=== PATIENT | male | born 1950 | race Caucasian/White ===

== ENCOUNTER 2020-10-07 09:33 | Inpatient (IN) | payer MEDICARE, MEDICAID, SELFPAY ==
[2020-10-07] VITALS (20 sets, daily range): BP systolic 117–148; BP diastolic 58–89; PULSE 64–73; RESP 14–20; TEMP 35.8–36.6; O2SAT 91–98; BMI 48.1; BMI 48.4; BMI 46.5
--- NOTE | 2020-10-07 09:41 | CT_ITS ---
STUDY: CT HEAD STROKE PROTOCOL W/O CONTRAST INJECTION REASON FOR EXAM: Male, 70 years old. Neuro deficit, acute, stroke suspected RADIATION DOSAGE (If Supplied By Facility): CTDIvol = ( 44.99 ) mGy, DLP = ( 863.6 ) mGycm TECHNIQUE: Transaxial CT imaging of the brain was performed without administration of intravenous contrast material. Individualized dose optimization techniques were used for this CT. COMPARISON: No relevant priors. FINDINGS: Normal soft tissue structures. Normal calvarium. There is moderate cerebral atrophy with widening of the extra-axial spaces and ventricular dilatation. There are areas of decreased attenuation within the white matter tracts of the supratentorial brain, consistent with microvascular disease changes. Normal basal ganglia and thalami. Normal brainstem. Normal cerebellum. There is no intracranial hemorrhage. There are no findings of an acute ischemic infarction. Atherosclerotic calcification of the cavernous portions of the internal carotid arteries bilaterally. Normal visualized paranasal sinuses. CT/STROKE Brain/Head without Cont IMPRESSION: Chronic involutional changes of the brain. N.B. : The above information has been verbally conveyed by Lester Castillo MD to Roland Valladares on 10/07/2020 10:15:54 (ET). Electronically Signed: Lester Castillo MD at 10:17 EDT , Service support ,
--- NOTE | 2020-10-07 09:41 | EKG12_ITS ---
Test Reason : STROKE Blood Pressure : / mmHG Vent. Rate : 067 BPM Atrial Rate : 067 BPM P-R Int : 176 ms QRS Dur : 086 ms QT Int : 408 ms P-R-T Axes : 090 -26 -43 degrees QTc Int : 431 ms Normal sinus rhythm T wave abnormality, consider anterolateral ischemia Abnormal ECG Confirmed by ILANA BEE, MAHAMED ([id number]), editor index ELAINA PARIKH ([id number]) on 10/11/2020 8:13:21 AM Referred By: [place] Confirmed By:MAHAMED PRECIADO MD
--- NOTE | 2020-10-07 09:41 | RAD_ITS ---
STUDY: X-RAY CHEST REASON FOR EXAM: Male, 70 years old. Neuro deficit, acute, stroke suspected TECHNIQUE: Single AP portable view of the chest. COMPARISON: None. FINDINGS: EKG electrodes are seen. There is elevation of the right hemidiaphragm. Mild increased markings at the left lung base suggestive of linear atelectasis and/or early infiltrate. There is blunting of both costophrenic angles. Normal size heart. Normal mediastinum and arabella. Normal visualized pulmonary arteries. There is atherosclerotic calcification of the aortic arch with tortuosity. Normal visualized thoracic spine. Normal visualized ribs, clavicles, and shoulders. There is no demonstrated abnormality of the visualized soft tissue structures of the upper abdomen. RAD/Chest 1 View IMPRESSION: Elevation of the right hemidiaphragm. Mild degree of increased markings at the left lung base suggestive of atelectasis and/or early infiltrate. Blunting of both costophrenic angles. Electronically Signed: Lester Castillo MD at 10:24 EDT , Service support ,
--- NOTE | 2020-10-07 09:42 | EDS_ITS ---
HPI History of Present Illness Chief Complaint: Neuro S/Sx Informant: patient Limited: language barrier Onset/Context/Timing Onset: - (Unknown at the present time) Context: - (Unknown) Timing: Continuous (Presumed) Onset: Unknown Current Severity: Unable to determine Maximum Severity: Unable to determine Worsened by: Unknown Relieved by: Unknown Associated Symptoms Associated Symptoms: Positive for Headache Narrative Narrative: Patient is an elderly male who apparently had surgery last week at outside facility. Unknown onset. He does acknowledge head discomfort. He attempts to speak. He does not speak K[place] fluently. Awaiting family to arrive since he is not able to communicate well. Per family they do not know when this started. He is unable to tell me when. Prior similar symptoms: No Recent Illness/Hospitalization: Yes (Surgery at outside facility) [facility] Medical History (Updated 10/07/20 @ 14:[address] Roland Valladares MD) Diabetes Hyperlipidemia Hypertension Schizophrenia unable to obtain Home Medications amlodipine 5 mg PO DAILY 10/07/20 [History Last Taken Unknown] aspirin 81 mg PO DAILY 10/07/20 [History Last Taken Unknown] benztropine 1 mg PO DAILY 10/07/20 [History Last Taken Unknown] divalproex 1,000 mg PO QHS 10/07/20 [History Last Taken Unknown] divalproex 500 mg PO BREAKFAST 10/07/20 [History Last Taken Unknown] doxepin 100 mg PO QHS 10/07/20 [History Last Taken Unknown] glimepiride 4 mg PO BID 10/07/20 [History Last Taken Unknown] levothyroxine 88 mcg PO QHS 10/07/20 [History Last Taken Unknown] lorazepam 1 mg PO BID 10/07/20 [History Last Taken Unknown] memantine 5 mg PO BID 10/07/20 [History Last Taken Unknown] metformin 1,000 mg PO BID 10/07/20 [History Last Taken Unknown] perphenazine 32 mg PO QHS 10/07/20 [History Last Taken Unknown] tamsulosin 0.4 mg PO DAILY 10/07/20 [History Last Taken Unknown] trazodone 300 mg PO QHS 10/07/20 [History Last Taken Unknown] ziprasidone HCl 80 mg PO BID 10/07/20 [History Last Taken Unknown] Allergy/AdvReac Type Severity Reaction Status Date / Time No Known Allergies Allergy Verified 10/07/20 12:39 unable to obtain Surgical History (Updated 10/07/20 @ 12:34 by Dilcia Herbert) History of cholecystectomy unable to obtain Social History (Updated 10/07/20 @ 09:[address] Roland Valladares MD) Smoking Status: Never smoker additional social history: Unable to obtain ROS [facility] ED Neurologic Neurologic: Reports weakness; Denies headache(s) EXAM Physical Exam Const Vital Signs: 10/07/20 09:35 10/07/20 09:54 10/07/20 09:59 Temperature 97.8 F Temperature Source Temporal Pulse Rate 67 65 64 Respiratory Rate 18 15 15 Blood Pressure 146/85 H 147/73 H 144/86 H Blood Pressure Mean 105 97 105 Pulse Ox 93 97 96 Oxygen Delivery Method Room Air Nasal Cannula Nasal Cannula Oxygen Flow Rate (L/min) 2 2 10/07/20 10:11 10/07/20 10:30 10/07/20 11:00 Temperature Temperature Source Pulse Rate 64 66 68 Respiratory Rate 16 18 19 H Blood Pressure 144/86 H 148/87 H 129/84 H Blood Pressure Mean 105 107 99 Pulse Ox 98 95 95 Oxygen Delivery Method Room Air Room Air Room Air Oxygen Flow Rate (L/min) 10/07/20 11:30 10/07/20 12:11 10/07/20 12:30 Temperature Temperature Source Pulse Rate 67 66 67 Respiratory Rate 17 19 H 16 Blood Pressure 123/66 H 132/89 H 126/58 H Blood Pressure Mean 85 103 80 Pulse Ox 95 95 95 Oxygen Delivery Method Room Air Room Air Room Air Oxygen Flow Rate (L/min) 10/07/20 13:00 10/07/20 13:30 Temperature Temperature Source Pulse Rate 67 66 Respiratory Rate 19 H 20 H Blood Pressure 142/76 H 120/69 Blood Pressure Mean 98 86 Pulse Ox 92 91 Oxygen Delivery Method Nasal Cannula Room Air Oxygen Flow Rate (L/min) 2 Positive well nourished, well developed and obese General Appearance ED: well developed and NAD Nutritional Appearance: obese HEENT Reports TM's clear and dry mucous membranes atraumatic Tympanic Membrane ED: Yes TM's clear Mouth ED: Yes dry mucous membranes Mouth: dry mucous membranes Eyes PERRL and EOMs intact bilaterally Eyes Narrative: There is no nystagmus. General Eye ED: Negative for pale conjunctiva or scleral icterus Neck no lymphadenopathy, supple and no JVD Neck Narrative: There is no carotid bruit right or left Chest Wall inspection of chest normal Resp normal respiratory effort and clear to auscultation bilaterally Cardio no murmurs Rate: regular rate Rhythm: regular rhythm Heart Sounds: S1 normal and S2 normal GI normal to inspection, nondistended, normoactive bowel sounds, soft to palpation and non-tender Back/Spine no CVA tenderness Extremity normal to inspection General Extremety ED: Yes edema General Extremity: edema Neuro No oriented x3, No CN's II-XII intact bilaterally and No no sensory deficits noted Rigoberto Coma Scale: document GCS findings Spontaneous Obeys Commands Confused 14 Sensorium / Orientation: Negative for alert Speech: Negative for speech normal Motor Exam: Negative for strength 5/5 throughout Psych mental status grossly normal Skin Lesions: no lesions Rashes: no rashes STROKE Vital Signs/Narrative: Vital Signs Pulse Resp BP Pulse Ox 10/07/20 13:30 66 20 H 120/69 91 10/07/20 13:00 67 19 H 142/76 H 92 10/07/20 12:30 67 16 126/58 H 95 10/07/20 12:11 66 19 H 132/89 H 95 10/07/20 11:30 67 17 123/66 H 95 10/07/20 11:00 68 19 H 129/84 H 95 10/07/20 10:30 66 18 148/87 H 95 NIHSS Initial: 1a Level of Consciousness: 1 1b LOC Questions (Score 2 if aphasic/stupor): 2 1c LOC Commands (Only score 1st attempt): 0 2 Best Gaze (If aphasic, use reflexive mvmts.): 0 4 Facial Palsy: 1 5 Motor Arm Right (UN = amputation/fusion): 0 5 Motor Arm Left: 2 6 Motor Leg Right: 0 6 Motor Leg Left: 1 7 Limb ataxia (Only + if out of proportion): 0 8 Sensory (Aphasia/stupor=0 or 1, coma=2): 1 9 Best Language: 0 10 Dysarthria (mute, coma=2, intubated=UN): 1 Total Score: 9 MDM MDM MDM Narrative Medical decision making narrative: Patient's physical exam is consistent with right hemispheric stroke. Stroke order set was initiated. Unable to complete NIH scale because patient unable to comprehend. Uncertain whether this is bec ause of language barrier or receptive aphasia. is present. She states she has history of schizophrenia. She also states he was having hallucinations yesterday. He was seen children. He is not acting his normal self and is not as alert as normal. Patient has abnormal respiratory pattern. Since he is somnolent will obtain VBG to assess pH and specifically CO2. His oxygenation is 97% on nasal cannula. I was informed by nurse that he is unable to ambulate. Since he has weakness on the left side I this is not a surprising. Lab Data Attestation: I reviewed the patient's lab results. Lab results narrative: Since there is bilirubin and urobilinogen in his urine a liver panel was obtained. Suspect this to be due to concentration since the color was noted to be yellow and not tao. Hospitalist been paged for admission for stroke. Labs: Laboratory Results - last 24 hr 10/07/20 10/07/20 10/07/20 09:48 09:55 09:55 WBC 7.3 RBC 4.38 L Hgb 13.6 Hct 41.8 MCV 95.4 H MCH 31.1 MCHC 32.5 RDW Std Deviation 49.3 H RDW Coeff of Areli 13.9 Plt Count 190 MPV 9.9 Immature Gran % (Auto) 0.400 Neut % (Auto) 46.3 L Lymph % (Auto) 36.2 [place] % (Auto) 9.4 Eos % (Auto) 7.4 H Baso % (Auto) 0.3 Absolute Neuts (auto) 3.4 Absolute Lymphs (auto) 2.63 Nucleated RBC % 0 PT 13.2 INR 1.1 APTT 30.1 Sodium Potassium Chloride Carbon Dioxide Anion Gap BUN Creatinine Estim Creat Clear Calc Est GFR (MDRD) Af Amer Est GFR (MDRD) Non-Af BUN/Creatinine Ratio Glucose Calcium Troponin I Urine Color Urine Clarity Urine pH Ur Specific Brady Urine Protein Urine Glucose (UA) Urine Ketones Urine Occult Blood Urine Nitrite Urine Bilirubin Urine Urobilinogen Ur Leukocyte Esterase Urine RBC Urine WBC Ur Squamous Epith Cells Urine Bacteria Urine Mucus POC Glucose 167 H 10/07/20 10/07/20 09:55 13:40 WBC RBC Hgb Hct MCV MCH MCHC RDW Std Deviation RDW Coeff of Areli Plt Count MPV Immature Gran % (Auto) Neut % (Auto) Lymph % (Auto) [place] % (Auto) Eos % (Auto) Baso % (Auto) Absolute Neuts (auto) Absolute Lymphs (auto) Nucleated RBC % PT INR APTT Sodium 138 Potassium 4.1 Chloride 100 Carbon Dioxide 30.0 Anion Gap 8 BUN 14 Creatinine 1.08 Estim Creat Clear Calc 64.55 Est GFR (MDRD) Af Amer 87 Est GFR (MDRD) Non-Af 72 BUN/Creatinine Ratio 13.0 Glucose 166 H Calcium 8.7 Troponin I < 0.015 Urine Color Yellow Urine Clarity Clear Urine pH 6.0 Ur Specific Brady 1.020 Urine Protein Negative Urine Glucose (UA) Normal Urine Ketones 15 H Urine Occult Blood Negative Urine Nitrite Negative Urine Bilirubin 1 H Urine Urobilinogen 1 H Ur Leukocyte Esterase Negative Urine RBC 0 SEEN Urine WBC 0 SEEN Ur Squamous Epith Cells 0-5 SEEN Urine Bacteria RARE Urine Mucus 1+ POC Glucose ABG Data ABG results: ABG 10/07/20 10:56 Specimen Type MABEL VBG pH 7.37 VBG pO2 38 VBG HCO3 28 H VBG Total CO2 30 VBG O2 Sat (Calc) 70 VBG Base Excess 3 POC Mix VBG pCO2 Pt Tmp 49.2 Radiography Diagnostic Testing: Radiology Impression Brain CT 10/07/20 09:41 IMPRESSION: Chronic involutional changes of the brain. N.B. : The above information has been verbally conveyed by Lester Castillo MD to [facility] on 10/07/2020 10:15:54 (ET). Electronically Signed: Lester Castillo MD at 10:17 EDT , Service support , ADDENDUM: 10/07/20 1024 IMPRESSION: Chronic involutional changes of the brain. N.B. : The above information has been verbally conveyed by Lester Castillo MD to Rolandalbaro Valladares on 10/07/2020 10:15:54 (ET). Electronically Signed: Lester Castillo MD at 10:17 EDT , Service support , Chest X-Ray 10/07/20 09:41 IMPRESSION: Elevation of the right hemidiaphragm. Mild degree of increased markings at the left lung base suggestive of atelectasis and/or early infiltrate. Blunting of both costophrenic angles. Electronically Signed: Lester Castillo MD at 10:24 EDT , Service support , I was contacted by radiologist at [phone] and informed there is no acute findings. There is evidence of atrophy and small vessel disease. Single view portable chest x-ray Normal cardiac size and silhouette. Mediastinum is unremarkable. Lung parenchyma is unremarkable. Inspiratory volume is limited. The right hemidiaphragm is elevated. Osseous structures appear normal. EKG Initial EKG: Attestation: I personally reviewed and interpreted this EKG as follows: Interpretation: Sinus Rhythm (Normal sinus rhythm with a ventricular rate of 67. UT interval is 176 ms. QS duration 86 ms. QT duration 408 ms. [place] is normal. There is minimally symmetrically inverted T waves in the anterolateral leads. Will need to obtain old for comparison.) Stroke Documentation Questions Reviewed Inclusion/Exclusion criteria: No Was Patient considered for Endovascular Intervention?: No IV Alteplase (t-PA) Administered: No No contraindications for IV Alteplase (t-PA) administration.: No Alteplase (t-PA) risks, benefits, alternative discussed: No Discharge Plan Triage Chief Complaint: Neuro S/Sx ED Provider: Roland Valladares Dx/Rx/DC Orders Clinical Impression: Acute CVA (cerebrovascular accident), Acute alteration in mental status Prescriptions: No Action ziprasidone HCl 80 mg capsule 80 mg PO BID RF: 0 doxepin 50 mg capsule 100 mg PO QHS RF: 0 amlodipine 5 mg tablet 5 mg PO DAILY RF: 0 divalproex 500 mg tablet,delayed release (DR/EC) 500 mg PO BREAKFAST RF: 0 divalproex 500 mg tablet,delayed release (DR/EC) 1,000 mg PO QHS RF: 0 levothyroxine 88 mcg tablet 88 mcg PO QHS RF: 0 tamsulosin 0.4 mg capsule 0.4 mg PO DAILY RF: 0 metformin 1,000 mg tablet 1,000 mg PO BID RF: 0 glimepiride 4 mg tablet 4 mg PO BID RF: 0 benztropine 1 mg tablet 1 mg PO DAILY RF: 0 trazodone 300 mg tablet 300 mg PO QHS RF: 0 aspirin 81 mg Tablet 81 mg PO DAILY RF: 0 lorazepam 1 mg tablet 1 mg PO BID RF: 0 perphenazine 8 mg tablet 32 mg PO QHS RF: 0 memantine 5 mg tablet 5 mg PO BID RF: 0 Primary Care Provider: Zac Sawyer Referrals: Zac Sawyer DO [Primary Care Provider] - Disposition Disposition: Acute Care Hospital [facility]
--- NOTE | 2020-10-07 09:45 | NURSING ---
NO OLD EKGS
[2020-10-07 09:56] LABS: Bedside Glucose 167 mg/dL (70-110)
[2020-10-07 10:10] LABS: Absolute Lymphocyte Count 2.63 X10^3/uL (0.83-4.51); Absolute Neutrophil Count 3.4 X10^3/uL (2.0-7.7); Basophil# 0.02 X10^3/uL; Basophil% 0.3 % (0-1); Eosinophil# 0.54 X10^3/uL; Eosinophils% 7.4 % (0-5); Hematocrit 41.8 % (40-54); Hemoglobin 13.6 g/dL (13.0-16.5); Lymphocyte # 2.63 X10^3/ul (0.83-4.51); Lymphocyte % 36.2 % (19-41); Mean Corp Hgb Conc 32.5 g/dL (32-36); Mean Corpuscular Hgb 31.1 pg (27.0-32.0); Mean Corpuscular Volume 95.4 fL (80-94); Mean Platelet Vol. 9.9 fl (6.2-12.0); Monocyte# 0.68 X10^3/uL; Monocyte% 9.4 % (0-10); NRBC Flagged by Analyzer 0 % (0-5); Neutrophil # 3.36 X10^3/uL (2.7-7.7); Neutrophil % 46.3 % (47-70); Platelet Count 190 K/mm3 (150-450); RBC Distribution Width CV 13.9 % (11.6-14.6); RBC Distribution Width SD 49.3 fl (35.1-43.9); Red Blood Count 4.38 M/mm3 (4.6-6.2); White Blood Count 7.3 K/mm3 (4.4-11.0)
[2020-10-07 10:21] LABS: International Normalized Ratio 1.1; Partial Thromboplast Time 30.1 Seconds (24.1-36.2); Prothrombin Time (Protime)PT. 13.2 SECONDS (11.7-14.9)
[2020-10-07 10:33] LABS: Anion Gap 8 (5-15); BUN 14 mg/dL (7-18); Calcium,Total 8.7 mg/dL (8.5-10.1); Chloride 100 mmol/L (98-107); Creatinine, Serum 1.08 mg/dL (0.70-1.30); EST Glomerular Filtration Rate 72 mL/min (>60); Est Glom Filt Rate - Afr Amer 87 mL/min (>60); Estimated Creatinine Clearance 64.55 ml/min; Glucose 166 mg/dL (74-106); Potassium 4.1 mmol/L (3.5-5.1); Sodium Level 138 mmol/L (136-145)
[2020-10-07 11:00] LABS: Blood Gas Specimen Type VEN; VBG BASE EXCESS 3 mmol/L (-1.0-3.5); VBG Bicarbonate 28 mmol/L (22-26); VBG PO2 38 mmHg (25-40); VBG SO2 70 % (50-70); VBG TCO2 30 mmol/L (23-33); VBG pCO2 49.2 mmHg (41-51); VBG pH 7.37 (7.32-7.42)
[2020-10-07 13:43] LABS: Red Blood Cells-Urine 0 SEEN /hpf (0-5); White Blood Cells 0 SEEN /hpf (0-5)
[2020-10-07 13:44] LABS: Color, Urine Yellow (Yellow); Glucose, Dipstick Normal (Normal); Ketone-Dipstick 15 mg/dl (Negative); Leukocyte Esterase-Dipstick Negative /ul (Negative); Nitrite-Dipstick Negative (Negative); Occult Blood-Urine Negative /ul (Negative); Protein-Dipstick Negative (Negative); Urine Clarity Clear (Clear); Urine Urobilinogen 1 mg/dl (Normal)
[2020-10-07 13:47] LABS: Urine Bilirubin Dipstick 1 mg/dL (Negative)
[2020-10-07 13:49] LABS: Bacteria RARE /hpf (None Seen); Mucous, Urine 1+ /hpf (<or=2+); Squamous Epithelial Cells - UA 0-5 SEEN /hpf (0-5)
--- NOTE | 2020-10-07 14:16 | ED.RN ---
PER MD NO LONGER NEED TO DO NIHSS.
--- NOTE | 2020-10-07 14:42 | NURSING ---
LISA PARKER CVA, ALTERED MENTAL STATUS
--- NOTE | 2020-10-07 15:50 | PCM.HP.STD ---
[facility] - General General Date of Admission: 10/07/20 HPI Narrative BRIONNA VALLECILLO, is a 70 M who presents with left-sided weakness. Symptoms began several days ago. Patient dropping things with both hands but having left leg weakness according to his . Patient is confused but also does not speak [place] well so history is obtained through the emergency room physician as well as the patient's , who is fluent in [place]. No history of prior stroke. Patient does have a history of hallucinations which is not new. She states that the patient has been told he is either having seizures or has dementia by different neurologist. [facility] Medical History Arthritis Asthma Chest pain Congestive heart failure (CHF) Diabetes GERD (gastroesophageal reflux disease) Hyperlipidemia Hypertension Kidney stones Schizophrenia Home Medications amlodipine 5 mg PO DAILY 10/07/20 [History Last Taken 10/07/20] aspirin 81 mg PO QHS 10/07/20 [History Last Taken 10/06/20] benztropine 1 mg PO BID 10/07/20 [History Last Taken 10/07/20] divalproex 1,000 mg PO QHS 10/07/20 [History Last Taken 10/06/20] divalproex 500 mg PO BREAKFAST 10/07/20 [History Last Taken 10/07/20] doxepin 100 mg PO QHS 10/07/20 [History Last Taken 10/06/20] glimepiride 4 mg PO BID 10/07/20 [History Last Taken 10/07/20] levothyroxine 88 mcg PO QHS 10/07/20 [History Last Taken 10/06/20] lorazepam 1 mg PO BID 10/07/20 [History Last Taken 10/07/20] memantine 5 mg PO BID 10/07/20 [History Last Taken 10/07/20] metformin 1,000 mg PO BID 10/07/20 [History Last Taken 10/07/20] perphenazine 32 mg PO QHS 10/07/20 [History Last Taken 10/06/20] tamsulosin 0.4 mg PO DAILY 10/07/20 [History Last Taken 10/06/20] trazodone 300 mg PO QHS 10/07/20 [History Last Taken 10/06/20] ziprasidone HCl 80 mg PO BID 10/07/20 [History Last Taken 10/07/20] Allergy/AdvReac Type Severity Reaction Status Date / Time No Known Allergies Allergy Verified 10/07/20 12:39 Surgical History History of cholecystectomy Social History Smoking Status: Never smoker additional social history: Unable to obtain ROS ROS Narrative Has had blurred vision since his cataract surgery. No chest pain no abdominal pain. All review of systems were negative except as mentioned above in the history of present illness and the other review of systems. Vital Signs Vital Signs Vital Signs: 10/07/20 09:35 10/07/20 09:54 10/07/20 09:59 Temperature 36.6 C Temperature Source Temporal Pulse Rate 67 65 64 Respiratory Rate 18 15 15 Blood Pressure 146/85 H 147/73 H 144/86 H Blood Pressure Mean 105 97 105 Blood Pressure Source Blood Pressure Position Blood Pressure Location Pulse Ox 93 97 96 Oxygen Delivery Method Room Air Nasal Cannula Nasal Cannula Oxygen Flow Rate (L/min) 2 2 10/07/20 10:11 10/07/20 10:30 10/07/20 11:00 Temperature Temperature Source Pulse Rate 64 66 68 Respiratory Rate 16 18 19 H Blood Pressure 144/86 H 148/87 H 129/84 H Blood Pressure Mean 105 107 99 Blood Pressure Source Blood Pressure Position Blood Pressure Location Pulse Ox 98 95 95 Oxygen Delivery Method Room Air Room Air Room Air Oxygen Flow Rate (L/min) 10/07/20 11:30 10/07/20 12:11 10/07/20 12:30 Temperature Temperature Source Pulse Rate 67 66 67 Respiratory Rate 17 19 H 16 Blood Pressure 123/66 H 132/89 H 126/58 H Blood Pressure Mean 85 103 80 Blood Pressure Source Blood Pressure Position Blood Pressure Location Pulse Ox 95 95 95 Oxygen Delivery Method Room Air Room Air Room Air Oxygen Flow Rate (L/min) 10/07/20 13:00 10/07/20 13:30 10/07/20 14:25 Temperature Temperature Source Pulse Rate 67 66 73 Respiratory Rate 19 H 20 H 14 Blood Pressure 142/76 H 120/69 117/74 Blood Pressure Mean 98 86 88 Blood Pressure Source Blood Pressure Position Blood Pressure Location Pulse Ox 92 91 97 Oxygen Delivery Method Nasal Cannula Room Air Room Air Oxygen Flow Rate (L/min) 2 10/07/20 15:11 10/07/20 15:28 Temperature 36.6 C 36.6 C Temperature Source Temporal Oral Pulse Rate 73 65 Respiratory Rate 14 16 Blood Pressure 117/74 122/76 H Blood Pressure Mean 88 91 Blood Pressure Source Monitor Blood Pressure Position Semi-Fowlers Blood Pressure Location Right Arm Pulse Ox 97 94 Oxygen Delivery Method Nasal Cannula Room Air Oxygen Flow Rate (L/min) 2 Weight Weight: 142.882 kg Body Mass Index (BMI) 46.5 Physical Exam Const alert Constitutional Narrative: Follows commands when they are translated. General Appearance: cooperative HEENT normocephalic and moist oral mucous membranes HEENT Narrative: No left facial weakness. Eyes PERRL and EOMs intact bilaterally Neck no lymphadenopathy Resp normal respiratory effort, no retractions, no use of accessory muscles and clear to auscultation bilaterally Cardio regular rate, regular rhythm, S1 normal heart sound and S2 normal heart sound GI normal to inspection, nondistended, normoactive bowel sounds, non-tender and non-distended Skin no rashes or lesions noted Neuro Neuro Narrative: Muscle strength 5 out of 5 in the right upper and right lower extremity. 4-5 in the left upper and left lower extremity. Sensorium / Orientation: awake and alert Psych affect normal Results Lab / Micro Data Result Diagrams: 10/07/20 09:55 10/07/20 09:55 Labs: Laboratory Results - last 24 hr 10/07/20 10/07/20 10/07/20 09:48 09:55 09:55 WBC 7.3 RBC 4.38 L Hgb 13.6 Hct 41.8 MCV 95.4 H MCH 31.1 MCHC 32.5 RDW Std Deviation 49.3 H RDW Coeff of Areli 13.9 Plt Count 190 MPV 9.9 Immature Gran % (Auto) 0.400 Neut % (Auto) 46.3 L Lymph % (Auto) 36.2 [place] % (Auto) 9.4 Eos % (Auto) 7.4 H Baso % (Auto) 0.3 Absolute Neuts (auto) 3.4 Absolute Lymphs (auto) 2.63 Nucleated RBC % 0 PT 13.2 INR 1.1 APTT 30.1 Sodium Potassium Chloride Carbon Dioxide Anion Gap BUN Creatinine Estim Creat Clear Calc Est GFR (MDRD) Af Amer Est GFR (MDRD) Non-Af BUN/Creatinine Ratio Glucose Calcium Troponin I Urine Color Urine Clarity Urine pH Ur Specific [place] Urine Protein Urine Glucose (UA) Urine Ketones Urine Occult Blood Urine Nitrite Urine Bilirubin Urine Urobilinogen Ur Leukocyte Esterase Urine RBC Urine WBC Ur Squamous Epith Cells Urine Bacteria Urine Mucus POC Glucose 167 H 10/07/20 10/07/20 09:55 13:40 WBC RBC Hgb Hct MCV MCH MCHC RDW Std Deviation RDW Coeff of Areli Plt Count MPV Immature Gran % (Auto) Neut % (Auto) Lymph % (Auto) [place] % (Auto) Eos % (Auto) Baso % (Auto) Absolute Neuts (auto) Absolute Lymphs (auto) Nucleated RBC % PT INR APTT Sodium 138 Potassium 4.1 Chloride 100 Carbon Dioxide 30.0 Anion Gap 8 BUN 14 Creatinine 1.08 Estim Creat Clear Calc 64.55 Est GFR (MDRD) Af Amer 87 Est GFR (MDRD) Non-Af 72 BUN/Creatinine Ratio 13.0 Glucose 166 H Calcium 8.7 Troponin I < 0.015 Urine Color Yellow Urine Clarity Clear Urine pH 6.0 Ur Specific [place] 1.020 Urine Protein Negative Urine Glucose (UA) Normal Urine Ketones 15 H Urine Occult Blood Negative Urine Nitrite Negative Urine Bilirubin 1 H Urine Urobilinogen 1 H Ur Leukocyte Esterase Negative Urine RBC 0 SEEN Urine WBC 0 SEEN Ur Squamous Epith Cells 0-5 SEEN Urine Bacteria RARE Urine Mucus 1+ POC Glucose ABG Data ABG results: ABG 10/07/20 10:56 Specimen Type MABEL VBG pH 7.37 VBG pO2 38 VBG HCO3 28 H VBG Total CO2 30 VBG O2 Sat (Calc) 70 VBG Base Excess 3 POC Mix VBG pCO2 Pt Tmp 49.[address] 10/07/20 09:41 IMPRESSION: Chronic involutional changes of the brain. N.B. : The above information has been verbally conveyed by Lester Castillo MD to Roland Valladares on 10/07/2020 10:15:54 (ET). Electronically Signed: Lester Castillo MD at 10:17 EDT , Service support , ADDENDUM: 10/07/20 1024 IMPRESSION: Chronic involutional changes of the brain. N.B. : The above information has been verbally conveyed by Lester Castillo MD to Roland Valladares on 10/07/2020 10:15:54 (ET). Electronically Signed: Lester Castillo MD at 10:17 EDT , Service support , Chest X-Ray 10/07/20 09:41 IMPRESSION: Elevation of the right hemidiaphragm. Mild degree of increased markings at the left lung base suggestive of atelectasis and/or early infiltrate. Blunting of both costophrenic angles. Electronically Signed: Lester Castillo MD at 10:24 EDT , Service support , Assessment & Plan Assessment/Plan (1) Acute CVA (cerebrovascular accident): PLAN: 1. Suspected acute versus subacute stroke Patient with resolving new onset of left-sided weakness which she did not have previously. Initial head CT showed no acute evidence of stroke Plan is for an MRI of the brain, MRA of the head and neck plus 2D echocardiogram. After that information has been gathered, then SOC teleneurology will need to be consulted for further recommendations. Patient on aspirin and will continue for now. Will start the patient on clopidogrel as well as a high intensity statin. PT, OT and speech therapy evaluate and treat. 2. Suspected dementia Patient's states that he hallucinates at times get confused easily. Patient already established with neurology Continue with memantine 3. Diabetes mellitus type 2 Continue with Metformin, glimepiride Add sliding scale insulin 4. Debility PT OT evaluate and treat already states that she would not be able to effectively handle the patient at home as it is just she and him at the house. Patient may need to go to a senior care facility if necessary upon discharge. 5. VTE prophylaxis Do not hospitalization is expected to exceed greater than 2 midnights, patient will be placed on enoxaparin 6. Advanced care planning: Discussed with the patient's . They state that patient is already DNR Comfort Care arrest no intubation. Charges/Coding Visit Charges Inpatient E&M: 71954 Init Hosp L3
--- NOTE | 2020-10-07 15:51 | ECHOCS_ITS ---
Reason For Study: TIA/CVA Procedure This was a 2D Doppler, Color Flow transthoracic echocardiogram. The study was technically difficult. Contrast injection was performed. Bubble study performed. Exam performed portable in patient room. Left Ventricle Based upon the 2D echocardiographic and contrast enhanced images obtained there appears to be grossly normal left ventricular size, wall motion, and systolic function. The estimated ejection fraction is 65 %. Diastolic function is indeterminate. Right Ventricle Normal RV size. Normal systolic function. Atria The left atrium is mildly enlarged. Normal right atrium. No doppler evidence for ASD. Bubble contrast study negative for right to left interatrial shunt. Mitral Valve There is no mitral annular calcification. Mitral valve not well visualized. Tricuspid Valve The tricuspid valve is not well visualized. Aortic Valve The aortic valve is not well visualized. Mild focal aortic valve calcification. Pulmonic Valve The pulmonic valve is not well visualized. Great Vessels The aortic root is not well visualized. Pericardium/Pleural No pericardial effusion. Medication Diluted definity 3ml given slow IV push to enhance endocardial definition. Performed a rapid injection of agitated mix of 9 cc saline and 1cc air to assess for atrial septal defect. MMode/2D Measurements & Calculations LVIDd: 4.3 cm IVSd: 1.2 cm LA dimension: 4.2 cm LVIDs: 2.4 cm LVPWd: 1.2 cm FS: 44.4 % LAV(MOD-bp): 61.7 ml LA A4 area: 22.1 cm2 LAV(MOD-bp) Indexed: 24.6 ml/m2 LAV(MOD-sp2): 51.1 ml LAV(MOD-sp4): 67.5 ml Time Measurements MV dec time: 0.28 sec Doppler Measurements & Calculations MV E max sulaiman: 60.0 cm/sec Lat Peak E' Sulaiman: 9.2 cm/sec Med Peak E' Sulaiman: 8.0 cm/sec MV A max sulaiman: 80.8 cm/sec E/E' lat: 6.5 E/E' med: 7.5 MV E/A: 0.74 MV V2 max: 88.6 cm/sec MV P1/2t max sulaiman: 66.6 cm/sec Ao V2 max: 138.0 cm/sec MV max P.1 mmHg MV P1/2t: 116.2 msec Ao max P.6 mmHg MV V2 mean: 50.0 cm/sec MV dec slope: 168.1 cm/sec2 MV mean P.2 mmHg MV V2 VTI: 21.0 cm MVA(P1/2t): 1.9 cm2 LV V1 max: 115.5 cm/sec PA V2 max: 105.0 cm/sec LV V1 max P.3 mmHg ECHO/Echo Complete W/ Contrast Interpretation Summary The study was technically difficult. Contrast injection was performed. Based upon the 2D echocardiographic and contrast enhanced images obtained there appears to be grossly normal left ventricular size, wall motion, and systolic function. The estimated ejection fraction is 65 %. The left atrium is mildly enlarged. Mild focal aortic valve calcification. Diastolic function is indeterminate. Bubble contrast study negative for right to left interatrial shunt. Ordering Physician: Klever Padron Referring Physician: Zac Sawyer Performed By: Ambrose Saleh RCS
--- NOTE | 2020-10-07 15:51 | MRI_ITS ---
HISTORY: left sided weakness EXAMINATION: MRA Head W/O Contrast TECHNIQUE: Routine [place] of [place]/brain 3D time of flight MR angiogram protocol was performed without gadolinium. 3D reconstructions were reviewed. IV Contrast dosage and agent: COMPARISON: None FINDINGS: --Anterior circulation: ICAs: No significant stenosis at the intracranial/visualized segments. ACAs: No significant stenosis at the visualized segments. Hypoplastic left A1 segment. ACOM: Present. MCAs: No significant stenosis at the visualized segments. --Posterior circulation: PCOMs: Not present. telehealth director: No significant stenosis at the visualized segments. Left LOADER HELPER origin, diminutive vessel best seen on the slab images. BASILAR ARTERY: No significant stenosis. VERTEBRAL ARTERIES: No significant stenosis at the intradural/visualized segments. No evidence of intracranial aneurysm or vascular malformation. MRI/MRA Head ONLY without Contrast IMPRESSION: No significant major vessel vaso-occlusive disease in the head. Diminutive left origin LOADER HELPER. at 2351 Reported and signed by: Jaren Rendon MD Electronically Signed: Jaren Rendon MD at 23:50 EDT Tel , Service support ,
--- NOTE | 2020-10-07 15:51 | MRI_ITS ---
EXAM: MR HEAD WITHOUT INTRAVENOUS CONTRAST : 1950 CLINICAL INDICATION: left sided weakness TECHNIQUE: Multiplanar and multisequence MR images of the brain were obtained without intravenous contrast. This report was created using [employer] report generation technology. COMPARISON: CT brain October 07, 2020 FINDINGS: BRAIN AND EXTRA-AXIAL SPACES: Prominence of the cortical sulci and ventricles related to volume loss change. There is no abnormal diffusion weighted signal intensity to suggest an acute ischemic event. No intra- or extra-axial hemorrhage. No intracranial mass or mass effect. Posterior fossa structures are unremarkable. Basal cisterns are patent. SELLA: Unremarkable. Normal sella turcica, pituitary gland, infundibular stalk, optic chiasm and hypothalamus. AUDITORY SYSTEM: Unremarkable. The internal auditory canals are patent. BONES/JOINTS: Unremarkable. No discrete lytic or blastic abnormalities. SINUSES: Unremarkable as visualized. Clear. MASTOID AIR CELLS: Unremarkable as visualized. Clear. ORBITS: Unremarkable as visualized. Both globes, extraocular muscles, optic nerves and retrobulbar fat appear unremarkable. VASCULATURE: Unremarkable as visualized. Normal flow voids in the major intracranial circulation. MRI/Brain without Contrast IMPRESSION: 1. No acute intracranial abnormality. 2. Moderate volume loss changes. at 0820 Reported and signed by: Marko Kamara MD Electronically Signed: Marko Kamara MD at 8:19 EDT Tel , Service support ,
[2020-10-07 16:34] LABS: AST(SGOT) 17 U/L (15-37); Alanine Aminotransfer ALT/SGPT 20 U/L (16-61); Albumin, Serum 3.2 g/dL (3.2-5.0); Alkaline Phosphatase 53 U/L (45-117); Bilirubin, Direct 0.18 mg/dL (0.00-0.30); Globulin 3.1 g/dL (2.2-4.2); Protein, Total 6.3 g/dL (6.4-8.2)
[2020-10-07] MEDS: metFORMIN HCl 1,000 MG Tablet 1000 MG PO (17:29)
[2020-10-07] MEDS: Clopidogrel Bisulfate 75 MG Tablet PO (17:29)
[2020-10-07] MEDS: Glimepiride 4 MG Tablet PO (17:30)
[2020-10-07 17:41] LABS: Bedside Glucose 100 mg/dL (70-110)
[2020-10-07] MEDS: Aspirin 81 MG TAB.CHEW PO (21:42)
[2020-10-07] MEDS: Divalproex Sodium 250 MG Tablet 1000 MG PO (21:43)
[2020-10-07] MEDS: Benztropine 2 MG Tablet 1 MG PO (21:43)
[2020-10-07] MEDS: Ziprasidone HCl 20 MG Capsule 80 MG PO (21:44)
[2020-10-07] MEDS: traZODone 100 MG Tablet 300 MG PO (21:44)
[2020-10-07] MEDS: DOXEPIN HCL 50 MG CAPSULE 100 MG PO (21:44)
[2020-10-07] MEDS: Atorvastatin Calcium 40 MG Tablet PO (21:45)
[2020-10-07] MEDS: Levothyroxine 88 MCG Tablet PO (21:45)
[2020-10-07] MEDS: Memantine Hydrochloride 5 MG Tablet PO (21:46)
[2020-10-07 22:00] LABS: Bedside Glucose 92 mg/dL (70-110)
--- NOTE | 2020-10-07 22:42 | NURSING ---
Pt removed continuous pulse ox, refusing to wear at this time.
[2020-10-07] MEDS: LORazepam 1 MG Tablet PO (23:38)
[2020-10-08] VITALS (10 sets, daily range): BP systolic 115–157; BP diastolic 53–89; PULSE 72–94; RESP 18; TEMP 36.1–36.8; O2SAT 93–95; BMI 46.5
--- NOTE | 2020-10-08 02:54 | NURSING ---
Addendum entered by Michelle Stokes 10/08/20 03:29: Pt awoke briefly just now, vitals obtained. While getting vitals, pt fell back asleep so NIH not performed at this time. ASTER Albert. Original Note: Pt was anxious and unable to fall asleep last evening 10/07, PRN ativan given for anxiety. Pt fell asleep and is sleeping well at this time. Per ROUTE SALESMAN AND DRIVER [place], okay to hold off on waking pt for NIH/vitals at this time. ASTER Albert.
[2020-10-08 06:44] LABS: Cholesterol 152 mg/dL (200); High Density Lipoprotein 34 mg/dL; Triglycerides 136 mg/dL; Very Low Density Lipoprotein 27 mg/dL (5-40)
--- NOTE | 2020-10-08 06:59 | NURSING ---
Pt's blood sugar this AM was 66, orange juice given. Recheck was 75. Pt given some milk and shine doones. Breakfast ordered. ASTER Albert.
[2020-10-08 07:00] LABS: Bedside Glucose 66 mg/dL (70-110)
[2020-10-08 07:00] LABS: Bedside Glucose 75 mg/dL (70-110)
[2020-10-08] MEDS: Divalproex Sodium 250 MG Tablet 500 MG PO (08:41)
[2020-10-08] MEDS: Glimepiride 4 MG Tablet PO ×2 (08:41→16:28)
[2020-10-08] MEDS: metFORMIN HCl 1,000 MG Tablet 1000 MG PO ×2 (08:41→16:28)
[2020-10-08 08:45] LABS: Bedside Glucose 147 mg/dL (70-110)
[2020-10-08] MEDS: Enoxaparin 40 MG/0.4 ML Syringe SC (09:06)
[2020-10-08] MEDS: Benztropine 2 MG Tablet 1 MG PO ×2 (09:07→21:59)
[2020-10-08] MEDS: amLODIPine 5 MG Tablet PO (09:07)
[2020-10-08] MEDS: Clopidogrel Bisulfate 75 MG Tablet PO (09:07)
[2020-10-08] MEDS: Tamsulosin HCl 0.4 MG Capsule PO (09:07)
[2020-10-08] MEDS: Memantine Hydrochloride 5 MG Tablet PO ×2 (09:07→22:02)
[2020-10-08] MEDS: Ziprasidone HCl 20 MG Capsule 80 MG PO ×2 (09:36→22:00)
--- NOTE | 2020-10-08 11:03 | PCM.PN.HOSP ---
Documented by User: Eileen Galdamez NP, JURY CONSULTANT-C 10/08/20 11:29 Subjective Subjective Patient seen and examined. Drowsy this morning, falling asleep during conversation. Difficulty following commands due to drowsiness. No noted focal deficits. Objective Data Objective Data Vital Signs: Vital Signs Temp Pulse Resp BP Pulse Ox 98.1 F 88 18 157/83 H 94 10/08/20 09:04 10/08/20 09:04 10/08/20 09:04 10/08/20 09:04 10/08/20 09:04 Oxygen Flow Rate (L/min) 2 Oxygen Delivery Method Room Air Weight: 315 lb Body Mass Index (BMI) 46.5 Intake & Output: Intake and Output for Last 24 Hours 10/06/20 10/07/20 10/08/20 23:59 23:59 23:59 Intake Total 360 / 960 630 / 630 Balance 360 / 960 630 / 630 Lab / Micro Data Result Diagrams: 10/07/20 09:55 10/07/20 09:55 Labs: Laboratory Results - last 24 hr 10/07/20 10/07/20 10/07/20 13:40 15:50 17:28 Total Bilirubin 0.40 Direct Bilirubin 0.18 AST 17 ALT 20 Alkaline Phosphatase 53 Troponin I < 0.015 Total Protein 6.3 L Albumin 3.2 Globulin 3.1 Triglycerides Cholesterol LDL Cholesterol VLDL Cholesterol HDL Cholesterol Urine Color Yellow Urine Clarity Clear Urine pH 6.0 Ur Specific [place] 1.020 Urine Protein Negative Urine Glucose (UA) Normal Urine Ketones 15 H Urine Occult Blood Negative Urine Nitrite Negative Urine Bilirubin 1 H Urine Urobilinogen 1 H Ur Leukocyte Esterase Negative Urine RBC 0 SEEN Urine WBC 0 SEEN Ur Squamous Epith Cells 0-5 SEEN Urine Bacteria RARE Urine Mucus 1+ POC Glucose 100 10/07/20 10/08/20 10/08/20 21:35 05:28 06:36 Total Bilirubin Direct Bilirubin AST ALT Alkaline Phosphatase Troponin I Total Protein Albumin Globulin Triglycerides 136 Cholesterol 152 LDL Cholesterol 91 VLDL Cholesterol 27 HDL Cholesterol 34 L Urine Color Urine Clarity Urine pH Ur Specific [place] Urine Protein Urine Glucose (UA) Urine Ketones Urine Occult Blood Urine Nitrite Urine Bilirubin Urine Urobilinogen Ur Leukocyte Esterase Urine RBC Urine WBC Ur Squamous Epith Cells Urine Bacteria Urine Mucus POC Glucose 92 66 L 10/08/20 10/08/20 06:54 08:39 Total Bilirubin Direct Bilirubin AST ALT Alkaline Phosphatase Troponin I Total Protein Albumin Globulin Triglycerides Cholesterol LDL Cholesterol VLDL Cholesterol HDL Cholesterol Urine Color Urine Clarity Urine pH Ur Specific [place] Urine Protein Urine Glucose (UA) Urine Ketones Urine Occult Blood Urine Nitrite Urine Bilirubin Urine Urobilinogen Ur Leukocyte Esterase Urine RBC Urine WBC Ur Squamous Epith Cells Urine Bacteria Urine Mucus POC Glucose 75 147 H Radiography Diagnostic Testing: Radiology Impression Brain MRI 10/07/20 15:51 IMPRESSION: 1. No acute intracranial abnormality. 2. Moderate volume loss changes. at 0820 Reported and signed by: Marko Kamara MD Electronically Signed: Marko Kamara MD at 8:19 EDT Tel , Service support , Head MRA 10/07/20 15:51 IMPRESSION: No significant major vessel vaso-occlusive disease in the head. 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 at 2351 Reported and signed by: Jaren Rendon MD Electronically Signed: Jaren Rendon MD at 23:50 EDT Tel , Service support , Physical Exam Const no apparent distress Orientation / Consciousness: other Other Details: Drowsy Exam Limitations: altered mental status HEENT normocephalic and moist oral mucous membranes Eyes PERRL, EOMs intact bilaterally and conjunctivae normal Neck no lymphadenopathy Resp clear to auscultation bilaterally Auscultation: diminished lung sounds Cardio regular rate, regular rhythm and no murmurs Peripheral Pulses: pulses 2+ throughout GI normal to inspection, nondistended, normoactive bowel sounds, non-tender and non-distended Extremity normal to inspection Extremity Narrative: Mild left arm weakness, secondary to left shoulder pain. Recent steroid injection Skin no rashes or lesions noted Lesions: no lesions Rashes: no rashes Trauma: no lacerations or abrasions Neuro CN's II-XII intact bilaterally, no focal motor deficits, no sensory deficits noted and deep tendon reflexes 2+ bilaterally Psych mental status grossly normal and affect normal Assessment & Plan Assessment/Plan (1) Acute alteration in mental status: PLAN: 1. Altered mental status, recent memory loss, weakness-has been following with neurology as outpatient. reports neurology suspects dementia as well as medication related to schizophrenia. She states she has been having difficulty caring for patient at home due to worsening symptoms. No focal deficits. Will obtain SOC consult for further recommendations. MRI negative for CVA. PT/OT. Case management consult. Patient was recently placed on memantine for suspected dementia. 2. Mild left arm weakness-CVA ruled out. Ongoing left shoulder pain with recent steroid injection. PT/OT. As needed pain regimen. 3. Schizophrenia-on ziprasidone, perphenazine, lorazepam, doxepin, trazodone, Depakote. 4. Type 2 diabetes mellitus-continue Metformin, glimepiride. Accu-Cheks with sliding scale insulin. 5. CAD-on aspirin. Not on statin. 6. Hypothyroidism-continue Synthroid regimen 7. Hypertension-stable, continue amlodipine. 8. MINNIE-patient refuses Pap therapy per . ABG ordered. 9. Obesity-encouraged diet and lifestyle modifications 10. BPH-on Flomax DVT prophylaxis-Lovenox subcu This patient was seen by MYA Calero under the supervision of Dr. Neville. Documented by User: Dr. Miriam Neville MD 10/08/20 12:18 Objective Data Lab / Micro Data Result Diagrams: 10/07/20 09:55 10/07/20 09:55 Charges/Coding Addendum Addendum: Hospitalist note: I am seeing this patient in conjunction with Eileen Galdamez. I independently seen and examined the patient. Progress note above, laboratory data and imaging studies reviewed and I concur with the above treatment and work-up plan. Patient was seen and his was at the bedside. He was awake and alert but falling asleep. He could not follow commands mostly because of language barrier. According to the , patient has been stumbling, unsteady in his gait and dropping things from his both hands over the last couple of months. He has been intermittently confused and disoriented for more than 3 months. Patient was weak all over, no focal deficit. He could not keep his left upper extremity up but he has chronic left shoulder pain and he received steroid injections 2 months ago according to his . His vital signs are stable, afebrile. - Physical Exam General: Alert, disoriented, Cooperative, No apparent distress. HEENT: Atraumatic, PERRLA, EOMI. Neck: Supple, No JVD, Negative Carotid Bruits, Trachea Midline, Thyroid Normal. Lungs: Clear to auscultation, Normal air movement, No rhonchi, No wheeze, No rales. Cardiovascular: Regular rate, Regular Rhythm, Normal S1, Normal S2, PMI Normal. Abdomen: Bowel Sounds Present, Soft, Non Tender, Non-Distended, No Hepato-splenomegaly. Extremities: No clubbing, No cyanosis, No edema Skin: No rashes, No breakdown Neurological: Cranial nerves are intact. Arm drift on the left upper extremity due to left shoulder pain and chronic arthritis. No focal deficit. Vital Signs are stable. Assessment and plan: #1 change in mental status/encephalopathy/global weakness/memory loss: Apparently, patient has been following up with neurology as outpatient. He does have history of schizophrenia and he has been on multiple psychiatric medications. Suspicion that patient may have dementia according to his . Medication side effects could be the reason for his symptoms. MRI brain showed no acute infarct or hemorrhage. CT scan brain showed no acute findings. MRA of the head reviewed was unremarkable. He is already on aspirin and statins. Vital signs are stable. Plan: SOC tele-neurology consult, PT OT evaluation and treatment. #2 other chronic medical problems: Stable, continue current medications as above. This note was generated with [employer] dictation software. It may contain incorrect words, spelling, and punctuation that were not noted in checking the note before signing. Visit Charges Inpatient E&M: 29699 Subs Hosp L2
--- NOTE | 2020-10-08 11:22 | TELEMED_ITS ---
SOC Telemed has confirmed receipt of a request for visit. This document confirms receipt of the order initiating the consult. To find the results of the consultation, please view the patient's reports for the scanned Telemed Consult.
[2020-10-08 11:35] LABS: Base Excess 0 mmol/L (-2 to +2); Bicarbonate 24.6 mmol/L (22-26); Blood Gas Specimen Type ART; FI02 21; PO2 66 mmHG (75-100); SITE R Radial; SO2 93 % (95-99); Total Carbon Dioxide 26 mmol/L; pH 7.41 (7.35-7.45)
[2020-10-08 11:45] LABS: Bedside Glucose 168 mg/dL (70-110)
--- NOTE | 2020-10-08 12:06 | CASEMGMT ---
Addendum entered by Demetria Walters 10/08/20 14:11: SW did talk with patient's about visitation at the nursing homes. Patient has not had his COVID vaccines. RONALD told her he will have to quarantine for 14 days. RONALD told her depending on the detention this likely means no visitors during that time. SW told her after that there are scheduled visits. She verbalized understanding. Demetria DAIGLE Original Note: Per Nurse Practitioner patient's would like for patient to go somewhere for rehab. SW met with patient's , introduced self and role at [facility]. She confirmed she would like patient to get stronger. SW provided patient's with a list of SNF providers including quality and resource use data and consistent with the patient?s preferred geographic region, medical needs, and insurance network. 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 RONALD explained she will need to pick at least 3 places she would be okay with sending patient. RNOALD will then call the facilities and check on availability. RONALD told her the hospital's unit does not take Medicaid so he would only be able to be there for 20 days and would then have to go to a different facility. This would not be ideal for a patient who is already confused. RONALD told her SW will check back with her. Demetria DAIGLE
--- NOTE | 2020-10-08 14:15 | CASEMGMT ---
SW checked back with patient's and her 3 choices were [facility], [facility], and [facility]. SW will work on referrals once PT/OT evaluations are in the computer. Demetria DAIGLE
--- NOTE | 2020-10-08 14:56 | CASEMGMT ---
RONALD faxed referral to [facility]. Await response. Demetria Walters ENGRAVER TIRE MOLD OXANA
--- NOTE | 2020-10-08 15:15 | CASEMGMT ---
SW did not complete a PHQ 9 with patient as per Nurse Practitioner he did not have a Stroke or TIA. He is also confused. Demetria Walters DISTRICT LEADER OXANA
[2020-10-08 16:35] LABS: Bedside Glucose 144 mg/dL (70-110)
[2020-10-08] MEDS: DOXEPIN HCL 50 MG CAPSULE 100 MG PO (22:01)
[2020-10-08] MEDS: Divalproex Sodium 250 MG Tablet 1000 MG PO (22:01)
[2020-10-08] MEDS: Aspirin 81 MG TAB.CHEW PO (22:02)
[2020-10-08] MEDS: traZODone 100 MG Tablet 300 MG PO (22:02)
[2020-10-08] MEDS: Levothyroxine 88 MCG Tablet PO (22:02)
[2020-10-08 22:16] LABS: Bedside Glucose 139 mg/dL (70-110)
[2020-10-09] VITALS (9 sets, daily range): BP systolic 106–138; BP diastolic 56–90; PULSE 79–116; RESP 16–18; TEMP 36.1–36.7; O2SAT 92–94
[2020-10-09 06:11] LABS: Bedside Glucose 132 mg/dL (70-110)
[2020-10-09 07:10] LABS: Anion Gap 11 (5-15); BUN 12 mg/dL (7-18); BUN/Creat Ratio 14.5 RATIO (10-20); Calcium,Total 8.6 mg/dL (8.5-10.1); Chloride 103 mmol/L (98-107); Creatinine, Serum 0.83 mg/dL (0.70-1.30); EST Glomerular Filtration Rate 98 mL/min (>60); Est Glom Filt Rate - Afr Amer 118 mL/min (>60); Glucose 63 mg/dL (74-106); Magnesium 1.9 mg/dL (1.6-2.6); Potassium 3.9 mmol/L (3.5-5.1); Sodium Level 138 mmol/L (136-145)
[2020-10-09] MEDS: Glimepiride 4 MG Tablet PO ×2 (07:46→17:40)
[2020-10-09] MEDS: Divalproex Sodium 250 MG Tablet 500 MG PO (07:46)
[2020-10-09] MEDS: metFORMIN HCl 1,000 MG Tablet 1000 MG PO ×2 (07:46→17:40)
--- NOTE | 2020-10-09 09:11 | CASEMGMT ---
RONALD called Sammie at [facility] and left her a voice mail inquiring if they looked at referral yet. Demetria Walters SKEIN WINDER OXANA
--- NOTE | 2020-10-09 09:27 | CASEMGMT ---
SW also faxed referral to [facility], patient's 's second choice in the event [facility] cannot accept him. Demetria Walters INFORMATION CLERK CASHIER OXANA
[2020-10-09] MEDS: Memantine Hydrochloride 5 MG Tablet PO ×2 (09:29→22:24)
[2020-10-09] MEDS: Benztropine 2 MG Tablet 1 MG PO ×2 (09:29→21:29)
[2020-10-09] MEDS: amLODIPine 5 MG Tablet PO (09:29)
[2020-10-09] MEDS: Tamsulosin HCl 0.4 MG Capsule PO (09:29)
[2020-10-09] MEDS: Enoxaparin 40 MG/0.4 ML Syringe SC (09:30)
[2020-10-09] MEDS: Ziprasidone HCl 20 MG Capsule 80 MG PO ×2 (09:30→21:29)
[2020-10-09 10:45] LABS: Thyroid Stim Hormone (TSH) 2.04 uIU/mL (0.358-3.74)
--- NOTE | 2020-10-09 10:53 | CASEMGMT ---
RONALD received a call from Dominique Bae at [facility] and they are able to accept patient. She is aware family is also waiting to see what [facility] has to say. SW asked about visitation. She said he will have a private room so he will have to quarantine, but his will be able to see him in his room. SW told her SW will get back to her as soon as SW hears something more. Demetria Walters MSW OXANA
[2020-10-09 11:16] LABS: Bedside Glucose 214 mg/dL (70-110)
--- NOTE | 2020-10-09 13:28 | TREXTCAR_ITS ---
Documented by User: Eileen Galdamez NP, MEDICAL CERTIFICATION SPECIALIST-C 10/09/20 13:35 Diet 10/07/20 15:51 Diet: Cardiac: Calorie-Controlled Food consistency:: Regular Liquid Consistency:: Regular/Thin Is pt able to select menu?: Yes Diet Comments: Distant Supervision, GERD precautions How many daily calories?: 2000 calorie Routine Orders/Code Status Enema Type: Fleetz Enema Frequency: Daily PRN Suppository Type: Dulcolax 10mg Suppository Frequency: Daily PRN Routine Lab Work: - (weekly CBC, BMP) Code Status: DNRCC-A (no intubation) Suggestions for Active Care Change Position every (hours): 2 Times a day to sit in chair: 3 Therapies Physical Therapy: Eval and Treat Occupational Therapy: Eval and Treat Speech Therapy: Eval and Treat Problem/Diagnosis (1) Acute alteration in mental status: Status: Acute Allergies/Procedures Done in Hospital Allergies No Known Allergies Allergy (Verified 10/07/20 12:39) Procedures: 2-D Echocardiogram Type of Care/Length of Stay Estimated LOS: Convalescent Care Less Than 30 days Type of Care Needed: Skilled Rehab Potential: Fair Prognosis: Fair Additional Orders/Day of Discharge H&P will serve as current which was dated: 10/07/20 Day of Discharge: 10/09/20 Dietary and Speech Recommendations Dietitian Recommendations/Changes: Continue cardiac calorie controlled 2000kcal/day diet. Jacques Sierra MS, RDN, LD Speech Linguistic Eval Summary: Orientation: Pt is oriented to self, type of place, . Reoriented the pt to age (off by 20 years), current city. The pt's noted he has more confusion at this time than is typical. He was able to accurately report how many children he has (7), but not able to state number of grandchildren (26). Auditory Comprehension: BLOOD BANK LABORATORY PROFESSIONAL required assistance from , Gabrielle, to follow sim ple commands for oral mech exam due to hard of hearing status and pt's first language being [place]. She would interpret directions, but pt still required frequent repetition of directions in [place]. He was unable to follow certain commands despite repetition and interpretation via . In simple conversation, the pt did not always respond with relevant answer even with translating. When asked about grandchildren, he provided information about his children. Will follow the pt for speech therapy due to intermittent confusion and provide ongoing assessment and goal adjustment as needed to address cognitive-linguistic impairment. Discharge Plan Admission Admit Date/Time: 10/07/20 15:49 Primary Reason for Your Visit: Schizophrenia, probable dementia Attending Provider: Miriam Neville Primary Care Provider: Zac Sawyer Discharge Orders/Prescriptions Prescriptions: Continued ziprasidone HCl 80 mg capsule 80 mg PO BID RF: 0 doxepin 50 mg capsule 100 mg PO QHS RF: 0 amlodipine 5 mg tablet 5 mg PO DAILY RF: 0 divalproex 500 mg tablet,delayed release (DR/EC) 500 mg PO BREAKFAST RF: 0 divalproex 500 mg tablet,delayed release (DR/EC) 1,000 mg PO QHS RF: 0 levothyroxine 88 mcg tablet 88 mcg PO QHS RF: 0 tamsulosin 0.4 mg capsule 0.4 mg PO DAILY RF: 0 metformin 1,000 mg tablet 1,000 mg PO BID RF: 0 glimepiride 4 mg tablet 4 mg PO BID RF: 0 benztropine 1 mg tablet 1 mg PO BID RF: 0 lorazepam 1 mg tablet 1 mg PO BID RF: 0 perphenazine 8 mg tablet 32 mg PO QHS RF: 0 memantine 5 mg tablet 5 mg PO BID RF: 0 trazodone 150 mg tablet 300 mg PO QHS RF: 0 aspirin 81 mg tablet,chewable 81 mg PO QHS RF: 0 Referrals / Follow Up: Neurologist, Primary [Other] - Within 1 Week Psychiatrist, Primary [Other] - Within 1 Week Zac Sawyer DO [Primary Care Provider] - In 1 Week Disposition Disposition (needs filled in before D/C Order can be placed): Senior Living Facility Documented by User: Dr. Miriam Neville MD 10/09/20 13:45 Allergies/Procedures Done in Hospital Allergies No Known Allergies Allergy (Verified 10/07/20 12:39) Discharge Plan Admission Admit Date/Time: 10/07/20 15:49 Primary Reason for Your Visit: Schizophrenia, probable dementia Attending Provider: Miriam Neville Primary Care Provider: Zac Sawyer Discharge Orders/Prescriptions Prescriptions: Continued ziprasidone HCl 80 mg capsule 80 mg PO BID RF: 0 doxepin 50 mg capsule 100 mg PO QHS RF: 0 amlodipine 5 mg tablet 5 mg PO DAILY RF: 0 divalproex 500 mg tablet,delayed release (DR/EC) 500 mg PO BREAKFAST RF: 0 divalproex 500 mg tablet,delayed release (DR/EC) 1,000 mg PO QHS RF: 0 levothyroxine 88 mcg tablet 88 mcg PO QHS RF: 0 tamsulosin 0.4 mg capsule 0.4 mg PO DAILY RF: 0 metformin 1,000 mg tablet 1,000 mg PO BID RF: 0 glimepiride 4 mg tablet 4 mg PO BID RF: 0 benztropine 1 mg tablet 1 mg PO BID RF: 0 lorazepam 1 mg tablet 1 mg PO BID RF: 0 perphenazine 8 mg tablet 32 mg PO QHS RF: 0 memantine 5 mg tablet 5 mg PO BID RF: 0 trazodone 150 mg tablet 300 mg PO QHS RF: 0 aspirin 81 mg tablet,chewable 81 mg PO QHS RF: 0 Referrals / Follow Up: Neurologist, Primary [Other] - Within 1 Week Psychiatrist, Primary [Other] - Within 1 Week Zac Sawyer DO [Primary Care Provider] - In 1 Week Disposition Disposition (needs filled in before D/C Order can be placed): Senior Living Facility
--- NOTE | 2020-10-09 13:35 | DS.PCM_ITS ---
Documented by User: Eileen Galdamez NP, LICENSED CHEMICAL SPRAY TECHNICIAN-C 10/09/20 13:44 Providers Date of Admission: 10/07/20 Date of Discharge: 10/09/20 Primary Care Physician: Dr. Zac Sawyer DO Reason For Visit: CVA, ALTERED MENTAL STATUS Diagnosis Discharge Diagnosis (1) Acute alteration in mental status: Status: Acute Code(s): R41.82 - Altered mental status, unspecified Medications at Discharge Home Medications amlodipine 5 mg PO DAILY 10/07/20 aspirin 81 mg PO QHS 10/07/20 benztropine 1 mg PO BID 10/07/20 divalproex 1,000 mg PO QHS 10/07/20 divalproex 500 mg PO BREAKFAST 10/07/20 doxepin 100 mg PO QHS 10/07/20 glimepiride 4 mg PO BID 10/07/20 levothyroxine 88 mcg PO QHS 10/07/20 lorazepam 1 mg PO BID 10/07/20 memantine 5 mg PO BID 10/07/20 metformin 1,000 mg PO BID 10/07/20 perphenazine 32 mg PO QHS 10/07/20 tamsulosin 0.4 mg PO DAILY 10/07/20 trazodone 300 mg PO QHS 10/07/20 ziprasidone HCl 80 mg PO BID 10/07/20 Hospital Course Operations None Procedures 2-D Echocardiogram and Electroencephalogram Summary of Care Provided Minutes Spent on Discharge: 35 Hospital Course: Patient is a 70-year-old male admitted 10/07/2020 due to increased confusion and weakness. 1. Altered mental status, recent memory loss, weakness-has been following with neurology as outpatient. reports neurology suspects dementia as well as medication related to schizophrenia. She states she has been having difficulty caring for patient at home due to worsening symptoms. No focal deficits. SOC consulted for further recommendations. MRI negative for CVA. Patient was recently placed on memantine for suspected dementia. SOC recommended EEG which was unremarkable. No acute etiology for symptoms. Suspect worsening underlying cognitive impairment/psychiatric disease versus medication side effect? However patient has been on home medications for a significant of time with the exception of memantine. Follow-up with primary neurologist and psychologist within 1 week as outpatient. SNF at discharge for rehab. 2. Mild left arm weakness-CVA ruled out. Ongoing left shoulder pain with recent steroid injection. As needed pain regimen, PT/OT at SNF. Continue outpatient follow-up with Ortho. 3. Schizophrenia-on ziprasidone, perphenazine, lorazepam, doxepin, trazodone, Depakote. 4. Type 2 diabetes mellitus-continue Metformin, glimepiride. 5. CAD-on aspirin. Not on statin. 6. Hypothyroidism-continue Synthroid regimen. 7. Hypertension-stable, continue amlodipine. 8. MINNIE-patient refuses Pap therapy per . 9. Obesity-encouraged diet and lifestyle modifications. 10. BPH-on Flomax. Physical Exam Const no apparent distress Orientation / Consciousness: other Other Details: Drowsy Exam Limitations: altered mental status HEENT normocephalic and moist oral mucous membranes Eyes PERRL, EOMs intact bilaterally and conjunctivae normal Neck no lymphadenopathy Resp clear to auscultation bilaterally Auscultation: diminished lung sounds Cardio regular rate, regular rhythm and no murmurs Peripheral Pulses: pulses 2+ throughout GI normal to inspection, nondistended, normoactive bowel sounds, non-tender and non-distended Extremity normal to inspection Extremity Narrative: Mild left arm weakness, secondary to left shoulder pain. Recent steroid injection Skin no rashes or lesions noted Lesions: no lesions Rashes: no rashes Trauma: no lacerations or abrasions Neuro CN's II-XII intact bilaterally, no focal motor deficits, no sensory deficits noted and deep tendon reflexes 2+ bilaterally Psych mental status grossly normal and affect normal Patient seen and examined prior to discharge. Physical assessment as noted above. Patient is stable for discharge with follow up recommendations as noted above. This patient was seen by MYA Calero under the supervision of Dr. Neville. Weight / BMI Weight Weight: 328 lb 0.765 oz Body Mass Index (BMI) 46.5 ABG / Lab / Microbiology Data Result Diagrams: 10/07/20 09:55 10/09/20 06:26 Laboratory: Laboratory Results - last 24 hr 10/08/20 10/08/20 10/09/20 16:27 21:58 06:03 Sodium Potassium Chloride Carbon Dioxide Anion Gap BUN Creatinine Estim Creat Clear Calc Est GFR (MDRD) Af Amer Est GFR (MDRD) Non-Af BUN/Creatinine Ratio Glucose Calcium Magnesium TSH POC Glucose 144 H 139 H 132 H 10/09/20 10/09/2010/09/21 06:26 06:26 10:48 Sodium 138 Potassium 3.9 Chloride 103 Carbon Dioxide 24.0 Anion Gap 11 BUN 12 Creatinine 0.83 Estim Creat Clear Calc 84.00 Est GFR (MDRD) Af Amer 118 Est GFR (MDRD) Non-Af 98 BUN/Creatinine Ratio 14.5 Glucose 63 L Calcium 8.6 Magnesium 1.9 TSH 2.04 POC Glucose 214 H Radiography Diagnostic Testing: Radiology Impression Echocardiogram 10/07/20 15:51 Interpretation Summary The study was technically difficult. Contrast injection was performed. Based upon the 2D echocardiographic and contrast enhanced images obtained there appears to be grossly normal left ventricular size, wall motion, and systolic function. The estimated ejection fraction is 65 %. The left atrium is mildly enlarged. Mild focal aortic valve calcification. Diastolic function is indeterminate. Bubble contrast study negative for right to left interatrial shunt. ____ Ordering Physician: Klever Padron Referring Physician: Zac Sawyer Performed By: Ambrose Saleh RCS Meaningful Use Info Meaningful Use Diagnoses (Choose all that apply): None applicable Discharge Plan Admission Admit Date/Time: 10/07/20 15:49 Primary Reason for Your Visit: Schizophrenia, probable dementia Attending Provider: Miriam Neville Primary Care Provider: Zac Sawyer Instructions Additional Instructions / Restrictions: Patient Problems: Altered Health Status related to Hospitalization Patient Goals: *Optimal Level of Health *Keep Appointments *Medication Compliance *Remain Safe Discharge Orders/Prescriptions Prescriptions: Continued ziprasidone HCl 80 mg capsule 80 mg PO BID RF: 0 doxepin 50 mg capsule 100 mg PO QHS RF: 0 amlodipine 5 mg tablet 5 mg PO DAILY RF: 0 divalproex 500 mg tablet,delayed release (DR/EC) 500 mg PO BREAKFAST RF: 0 divalproex 500 mg tablet,delayed release (DR/EC) 1,000 mg PO QHS RF: 0 levothyroxine 88 mcg tablet 88 mcg PO QHS RF: 0 tamsulosin 0.4 mg capsule 0.4 mg PO DAILY RF: 0 metformin 1,000 mg tablet 1,000 mg PO BID RF: 0 glimepiride 4 mg tablet 4 mg PO BID RF: 0 benztropine 1 mg tablet 1 mg PO BID RF: 0 lorazepam 1 mg tablet 1 mg PO BID RF: 0 perphenazine 8 mg tablet 32 mg PO QHS RF: 0 memantine 5 mg tablet 5 mg PO BID RF: 0 trazodone 150 mg tablet 300 mg PO QHS RF: 0 aspirin 81 mg tablet,chewable 81 mg PO QHS RF: 0 Referrals / Follow Up: Neurologist, Primary [Other] - Within 1 Week Psychiatrist, Primary [Other] - Within 1 Week Zac Sawyer DO [Primary Care Provider] - In 1 Week Disposition Disposition (needs filled in before D/C Order can be placed): [facility] Facility Documented by User: Dr. Miriam Neville MD 10/10/20 08:47 Providers Date of Admission: 10/07/20 Reason For Visit: CVA, ALTERED MENTAL STATUS Medications at Discharge Home Medications amlodipine 5 mg PO DAILY 10/07/20 aspirin 81 mg PO QHS 10/07/20 benztropine 1 mg PO BID 10/07/20 divalproex 1,000 mg PO QHS 10/07/20 divalproex 500 mg PO BREAKFAST 10/07/20 doxepin 100 mg PO QHS 10/07/20 glimepiride 4 mg PO BID 10/07/20 levothyroxine 88 mcg PO QHS 10/07/20 lorazepam 1 mg PO BID 10/07/20 memantine 5 mg PO BID 10/07/20 metformin 1,000 mg PO BID 10/07/20 perphenazine 32 mg PO QHS 10/07/20 tamsulosin 0.4 mg PO DAILY 10/07/20 trazodone 300 mg PO QHS 10/07/20 ziprasidone HCl 80 mg PO BID 10/07/20 ABG / Lab / Microbiology Data Result Diagrams: 10/07/20 09:55 10/09/20 06:26 Discharge Plan Admission Admit Date/Time: 10/07/20 15:49 Primary Reason for Your Visit: Schizophrenia, probable dementia Attending Provider: Miriam Neville Primary Care Provider: Zac Sawyer Instructions Additional Instructions / Restrictions: Patient Problems: Altered Health Status related to Hospitalization Patient Goals: *Optimal Level of Health *Keep Appointments *Medication Compliance *Remain Safe Discharge Orders/Prescriptions Prescriptions: Continued ziprasidone HCl 80 mg capsule 80 mg PO BID RF: 0 doxepin 50 mg capsule 100 mg PO QHS RF: 0 amlodipine 5 mg tablet 5 mg PO DAILY RF: 0 divalproex 500 mg tablet,delayed release (DR/EC) 500 mg PO BREAKFAST RF: 0 divalproex 500 mg tablet,delayed release (DR/EC) 1,000 mg PO QHS RF: 0 levothyroxine 88 mcg tablet 88 mcg PO QHS RF: 0 tamsulosin 0.4 mg capsule 0.4 mg PO DAILY RF: 0 metformin 1,000 mg tablet 1,000 mg PO BID RF: 0 glimepiride 4 mg tablet 4 mg PO BID RF: 0 benztropine 1 mg tablet 1 mg PO BID RF: 0 lorazepam 1 mg tablet 1 mg PO BID RF: 0 perphenazine 8 mg tablet 32 mg PO QHS RF: 0 memantine 5 mg tablet 5 mg PO BID RF: 0 trazodone 150 mg tablet 300 mg PO QHS RF: 0 aspirin 81 mg tablet,chewable 81 mg PO QHS RF: 0 Referrals / Follow Up: Neurologist, Primary [Other] - Within 1 Week Psychiatrist, Primary [Other] - Within 1 Week Zac Sawyer DO [Primary Care Provider] - In 1 Week Disposition Disposition (needs filled in before D/C Order can be placed): [facility] Charges/Coding Addendum Addendum: Patient supposed to go to senior living facility but was still waiting on insurance approval. Discharge canceled.
--- NOTE | 2020-10-09 13:44 | CASEMGMT ---
RONALD called Sammei at [facility] to see if they are able to accept patient. She said she is waiting on the clinical staff to let her know if they can take him for sure. 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 RONALD told her patient is ready today. She will get back to RONALD. Demetria DAIGLE
--- NOTE | 2020-10-09 14:08 | PHA.DC.MR ---
Pharmacy Service has performed discharge medication reconciliation for this patient. The patient's discharge medication list was reviewed for discrepancies and discrepancies were resolved. Home Medications amlodipine 5 mg PO DAILY 10/07/20 aspirin 81 mg PO QHS 10/07/20 benztropine 1 mg PO BID 10/07/20 divalproex 1,000 mg PO QHS 10/07/20 divalproex 500 mg PO BREAKFAST 10/07/20 doxepin 100 mg PO QHS 10/07/20 glimepiride 4 mg PO BID 10/07/20 levothyroxine 88 mcg PO QHS 10/07/20 lorazepam 1 mg PO BID 10/07/20 memantine 5 mg PO BID 10/07/20 metformin 1,000 mg PO BID 10/07/20 perphenazine 32 mg PO QHS 10/07/20 tamsulosin 0.4 mg PO DAILY 10/07/20 trazodone 300 mg PO QHS 10/07/20 ziprasidone HCl 80 mg PO BID 10/07/20
--- NOTE | 2020-10-09 14:10 | CASEMGMT ---
RONALD updated patient's letting her know RONALD is still waiting on [facility] to get back to RONALD about whether or not they can take patient. RONALD told her he will likely go today. RONALD will let her know as soon as RONALD hears back. Demetria Walters KEY ACCOUNT DIRECTOR OXANA
--- NOTE | 2020-10-09 14:53 | CASEMGMT ---
RONALD also called Aura Bae at [facility] to let her know SW did not forget about her, but SW is still waiting on [facility]. RONALD did tell her that SW learned patient's works at [facility]. SW told her SW will let her know. Demetria Walters COOPERATIVE EXTENSION AGENTMaida DAIGLE
--- NOTE | 2020-10-09 15:46 | PCM.PN.HOSP ---
Documented by User: Eileen Galdamez NP, LEASING PROFESSIONAL-C 10/09/20 15:50 Subjective Subjective Patient seen and examined. More alert today. States he slept better overnight. No new complaints. Plan for DC to SNF however they cannot take patient until 10/10. Objective Data Objective Data Vital Signs: Vital Signs Temp Pulse Resp BP Pulse Ox 97 F L 82 16 112/75 92 10/09/20 15:20 10/09/20 15:20 10/09/20 15:20 10/09/20 15:20 10/09/20 15:20 Oxygen Flow Rate (L/min) 2 Oxygen Delivery Method Room Air Weight: 328 lb 0.765 oz Body Mass Index (BMI) 46.5 Intake & Output: Intake and Output for Last 24 Hours 10/07/20 10/08/20 10/09/20 23:59 23:59 23:59 Intake Total 360 / 960 1530 / 1530 400 / 400 Balance 360 / 960 1530 / 1530 400 / 400 Lab / Micro Data Result Diagrams: 10/07/20 09:55 10/09/20 06:26 Labs: Laboratory Results - last 24 hr 10/08/20 10/08/20 10/09/20 16:27 21:58 06:03 Sodium Potassium Chloride Carbon Dioxide Anion Gap BUN Creatinine Estim Creat Clear Calc Est GFR (MDRD) Af Amer Est GFR (MDRD) Non-Af BUN/Creatinine Ratio Glucose Calcium Magnesium TSH POC Glucose 144 H 139 H 132 H 10/09/20 10/09/20 10/09/20 06:26 06:26 10:48 Sodium 138 Potassium 3.9 Chloride 103 Carbon Dioxide 24.0 Anion Gap 11 BUN 12 Creatinine 0.83 Estim Creat Clear Calc 84.00 Est GFR (MDRD) Af Amer 118 Est GFR (MDRD) Non-Af 98 BUN/Creatinine Ratio 14.5 Glucose 63 L Calcium 8.6 Magnesium 1.9 TSH 2.04 POC Glucose 214 H Micro: Microbiology 10/09/20 13:47 Mucosa - Nose SARS-CoV-2 Antigen (Rapid) - Final Radiography Diagnostic Testing: Radiology Impression Echocardiogram 10/07/20 15:51 Interpretation Summary The study was technically difficult. Contrast injection was performed. Based upon the 2D echocardiographic and contrast enhanced images obtained there appears to be grossly normal left ventricular size, wall motion, and systolic function. The estimated ejection fraction is 65 %. The left atrium is mildly enlarged. Mild focal aortic valve calcification. Diastolic function is indeterminate. Bubble contrast study negative for right to left interatrial shunt. Ordering Physician: Klever Padron Referring Physician: Zac Sawyer Performed By: Ambrose Saleh RCS Physical Exam Const alert and no apparent distress Orientation / Consciousness: awake and oriented to person HEENT normocephalic and moist oral mucous membranes Eyes PERRL, EOMs intact bilaterally and conjunctivae normal Neck no lymphadenopathy Resp normal respiratory effort and clear to auscultation bilaterally Cardio regular rate, regular rhythm and no murmurs Peripheral Pulses: pulses 2+ throughout GI normal to inspection, nondistended, normoactive bowel sounds, non-tender and non-distended Extremity normal to inspection Skin no rashes or lesions noted Lesions: no lesions Rashes: no rashes Trauma: no lacerations or abrasions Neuro CN's II-XII intact bilaterally, no focal motor deficits, no sensory deficits noted and deep tendon reflexes 2+ bilaterally Psych mental status grossly normal and affect normal Assessment & Plan Assessment/Plan (1) Acute alteration in mental status: PLAN: 1. Altered mental status, recent memory loss, weakness-has been following with neurology as outpatient. reports neurology suspects dementia as well as medication related to schizophrenia. She states she has been having difficulty caring for patient at home due to worsening symptoms. No focal deficits. SOC consulted for further recommendations. MRI negative for CVA. Patient was recently placed on memantine for suspected dementia. SOC recommended EEG which was unremarkable. No acute etiology for symptoms. Suspect worsening underlying cognitive impairment/psychiatric disease versus medication side effect? However patient has been on home medications for a significant of time with the exception of memantine. Follow-up with primary neurologist and psychologist within 1 week as outpatient. SNF at discharge for rehab. SNF able to accept patient 10/10/20. 2. Mild left arm weakness-CVA ruled out. Ongoing left shoulder pain with recent steroid injection. As needed pain regimen, PT/OT at SNF. Continue outpatient follow-up with Ortho. 3. Schizophrenia-on ziprasidone, perphenazine, lorazepam, doxepin, trazodone, Depakote. 4. Type 2 diabetes mellitus-continue Metformin, glimepiride. 5. CAD-on aspirin. Not on statin. 6. Hypothyroidism-continue Synthroid regimen. 7. Hypertension-stable, continue amlodipine. 8. MINNIE-patient refuses Pap therapy per . 9. Obesity-encouraged diet and lifestyle modifications. 10. BPH-on Flomax. DVT prophylaxis-Lovenox subcu This patient was seen by Eileen Galdamez NP-C under the supervision of Dr. Neville. Documented by User: Dr. Miriam Neville MD 10/10/20 08:50 Objective Data Lab / Micro Data Result Diagrams: 10/07/20 09:55 10/09/20 06:26 Charges/Coding Addendum Addendum: [facility] [id number] [place] [address] Progress Note - Efuwlofsveu71/08/21 1103MR#: [id number]:Britney VALLECILLO #:[id number]: [id number]: Eileen Galdamez NP LEASING PROFESSIONAL-CPCP:Dr. Zac Sawyer DO Status:ADM INLocation: [id number] Documented by User: Eileen Galdamez NP, LEASING PROFESSIONAL-C 10/08/20 11:29 Subjective Subjective Patient seen and examined. Drowsy this morning, falling asleep during conversation. Difficulty following commands due to drowsiness. No noted focal deficits. Objective Data Objective Data Vital Signs: Vital Signs Temp Pulse Resp BP Pulse Ox 98.1 F 88 18 157/83 H 94 10/08/20 09:04 10/08/20 09:04 10/08/20 09:04 10/08/20 09:04 10/08/20 09:04 Oxygen Flow Rate (L/min) 2 Oxygen Delivery Method Room Air Weight: 315 lb Body Mass Index (BMI) 46.5 Intake & Output:Intake and Output for Last 24 Hours 10/06/20 10/07/20 10/08/20 23:59 23:59 23:59 Intake Total 360 / 960 630 / 630 Balance 360 / 960 630 / 630 Lab / Micro Data Result Diagrams: 10/07/20 09:55 document embedded image 10/07/20 09:55 document embedded image Labs:Laboratory Results - last 24 hr 10/07/20 10/07/20 10/07/20 13:40 15:50 17:28 Total Bilirubin 0.40 Direct Bilirubin 0.18 AST 17 ALT 20 Alkaline Phosphatase 53 Troponin I < 0.015 Total Protein 6.3 L Albumin 3.2 Globulin 3.1 Triglycerides Cholesterol LDL Cholesterol VLDL Cholesterol HDL Cholesterol Urine Color Yellow Urine Clarity Clear Urine pH 6.0 Ur Specific [place] 1.020 Urine Protein Negative Urine Glucose (UA) Normal Urine Ketones 15 H Urine Occult Blood Negative Urine Nitrite Negative Urine Bilirubin 1 H Urine Urobilinogen 1 H Ur Leukocyte Esterase Negative Urine RBC 0 SEEN Urine WBC 0 SEEN Ur Squamous Epith Cells 0-5 SEEN Urine Bacteria RARE Urine Mucus 1+ POC Glucose 100 10/07/20 10/08/20 10/08/20 21:35 05:28 06:36 Total Bilirubin Direct Bilirubin AST ALT Alkaline Phosphatase Troponin I Total Protein Albumin Globulin Triglycerides 136 Cholesterol 152 LDL Cholesterol 91 VLDL Cholesterol 27 HDL Cholesterol 34 L Urine Color Urine Clarity Urine pH Ur Specific [place] Urine Protein Urine Glucose (UA) Urine Ketones Urine Occult Blood Urine Nitrite Urine Bilirubin Urine Urobilinogen Ur Leukocyte Esterase Urine RBC Urine WBC Ur Squamous Epith Cells Urine Bacteria Urine Mucus POC Glucose 92 66 L 10/08/20 10/08/20 06:54 08:39 Total Bilirubin Direct Bilirubin AST ALT Alkaline Phosphatase Troponin I Total Protein Albumin Globulin Triglycerides Cholesterol LDL Cholesterol VLDL Cholesterol HDL Cholesterol Urine Color Urine Clarity Urine pH Ur Specific [place] Urine Protein Urine Glucose (UA) Urine Ketones Urine Occult Blood Urine Nitrite Urine Bilirubin Urine Urobilinogen Ur Leukocyte Esterase Urine RBC Urine WBC Ur Squamous Epith Cells Urine Bacteria Urine Mucus POC Glucose 75 147 H Radiography Diagnostic Testing:Radiology Impression Brain MRI 10/07/20 15:51 IMPRESSION: 1. No acute intracranial abnormality. 2. Moderate volume loss changes. at 0820 Reported and signed by: Marko Kamara MD Electronically Signed: Marko Kamara MD at 8:19 EDT Tel , Service support , Head MRA 10/07/20 15:51 IMPRESSION: No significant major vessel vaso-occlusive disease in the head. 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 at 2351 Reported and signed by: Jaren Rendon MD Electronically Signed: Jaren Rendon MD at 23:50 EDT Tel , Service support , Physical Exam Const no apparent distress Orientation / Consciousness: other Other Details: Drowsy Exam Limitations: altered mental status HEENT normocephalic and moist oral mucous membranes Eyes PERRL, EOMs intact bilaterally and conjunctivae normal Neck no lymphadenopathy Resp clear to auscultation bilaterally Auscultation: diminished lung sounds Cardio regular rate, regular rhythm and no murmurs Peripheral Pulses: pulses 2+ throughout GI normal to inspection, nondistended, normoactive bowel sounds, non-tender and non-distended Extremity normal to inspection Extremity Narrative: Mild left arm weakness, secondary to left shoulder pain. Recent steroid injection Skin no rashes or lesions noted Lesions: no lesions Rashes: no rashes Trauma: no lacerations or abrasions Neuro CN's II-XII intact bilaterally, no focal motor deficits, no sensory deficits noted and deep tendon reflexes 2+ bilaterally Psych mental status grossly normal and affect normal Assessment & Plan Assessment/Plan (1) Acute alteration in mental status: PLAN: 1. Altered mental status, recent memory loss, weakness-has been following with neurology as outpatient. reports neurology suspects dementia as well as medication related to schizophrenia. She states she has been having difficulty caring for patient at home due to worsening symptoms. No focal deficits. Will obtain SOC consult for further recommendations. MRI negative for CVA. PT/OT. Case management consult. Patient was recently placed on memantine for suspected dementia. 2. Mild left arm weakness-CVA ruled out. Ongoing left shoulder pain with recent steroid injection. PT/OT. As needed pain regimen. 3. Schizophrenia-on ziprasidone, perphenazine, lorazepam, doxepin, trazodone, Depakote. 4. Type 2 diabetes mellitus-continue Metformin, glimepiride. Accu-Cheks with sliding scale insulin. 5. CAD-on aspirin. Not on statin. 6. Hypothyroidism-continue Synthroid regimen 7. Hypertension-stable, continue amlodipine. 8. MINNIE-patient refuses Pap therapy per . ABG ordered. 9. Obesity-encouraged diet and lifestyle modifications 10. BPH-on Flomax DVT prophylaxis-Lovenox subcu This patient was seen by MAKENNA CaleroC under the supervision of Dr. Neville. Documented by User: Dr. Miriam Neville MD 10/08/20 12:18 Objective Data Lab / Micro Data Result Diagrams: 10/07/20 09:55 document embedded image 10/07/20 09:55 document embedded image Charges/Coding Addendum Addendum: Hospitalist note: I am seeing this patient in conjunction with Eileen Galdamez. I independently seen and examined the patient. Progress note above, laboratory data and imaging studies reviewed and I concur with the above treatment and work-up plan. Today, patient is more alert and awake. He has no complaints. His vital signs are stable. We are still awaiting insurance approval for placement to nursing home facility. - Physical Exam General: Alert, disoriented, Cooperative, No apparent distress. HEENT: Atraumatic, PERRLA, EOMI. Neck: Supple, No JVD, Negative Carotid Bruits, Trachea Midline, Thyroid Normal. Lungs: Clear to auscultation, Normal air movement, No rhonchi, No wheeze, No rales. Cardiovascular: Regular rate, Regular Rhythm, Normal S1, Normal S2, PMI Normal. Abdomen: Bowel Sounds Present, Soft, Non Tender, Non-Distended, No Hepato-splenomegaly. Extremities: No clubbing, No cyanosis, No edema Skin: No rashes, No breakdown Neurological: Cranial nerves are intact. Arm drift on the left upper extremity due to left shoulder pain and chronic arthritis. No focal deficit. Vital Signs are stable. Assessment and plan: #1 change in mental status/encephalopathy/global weakness/memory loss: Acute stroke ruled out. SOC tele-neurology consulted, recommended EEG. EEG was done and was unremarkable. Apparently, patient has been following up with neurology as outpatient. He does have history of schizophrenia and he has been on multiple psychiatric medications. Suspicion that patient may have dementia according to his . MRI brain showed no acute infarct or hemorrhage. CT scan brain showed no acute findings. MRA of the head reviewed was unremarkable. He is already on aspirin and statins. Vital signs are stable. Plan to follow-up with neurology and psychiatry as outpatient. We are awaiting insurance approval for placement to nursing home facility. #2 other chronic medical problems: Stable, continue current medications as above. This note was generated with [employer] software. It may contain incorrect words, spelling, and punctuation that were not noted in checking the note before signing. Visit Charges Inpatient E&M: 60371 Subs Hosp L2
--- NOTE | 2020-10-09 15:57 | CASEMGMT ---
RONALD called [facility] and Sammie said they can take patient, but not until tomorrow. RONALD notified patient's and Nurse Practitioner. Plan: [facility] [place] Demetria DAIGLE
[2020-10-09 16:36] LABS: Bedside Glucose 196 mg/dL (70-110)
[2020-10-09] MEDS: Divalproex Sodium 250 MG Tablet 1000 MG PO (21:29)
[2020-10-09] MEDS: traZODone 100 MG Tablet 300 MG PO (21:29)
[2020-10-09] MEDS: Aspirin 81 MG TAB.CHEW PO (21:29)
[2020-10-09] MEDS: DOXEPIN HCL 50 MG CAPSULE 100 MG PO (21:29)
[2020-10-09] MEDS: Levothyroxine 88 MCG Tablet PO (21:29)
[2020-10-09 21:45] LABS: Bedside Glucose 202 mg/dL (70-110)
[2020-10-10 01:30] VITALS: BP 111/63; PULSE 82; RESP 16; TEMP 36.4; O2SAT 95
[2020-10-10 03:00] VITALS: PULSE 78
[2020-10-10 06:35] VITALS: BP 112/63; PULSE 95; RESP 16; TEMP 36.8; O2SAT 93
[2020-10-10 06:42] VITALS: O2SAT 93
[2020-10-10 06:51] LABS: Bedside Glucose 138 mg/dL (70-110)
[2020-10-10 06:57] VITALS: PULSE 81
[2020-10-10] MEDS: metFORMIN HCl 1,000 MG Tablet 1000 MG PO (08:27)
[2020-10-10] MEDS: amLODIPine 5 MG Tablet PO (08:27)
[2020-10-10] MEDS: Divalproex Sodium 250 MG Tablet 500 MG PO (08:27)
[2020-10-10] MEDS: Glimepiride 4 MG Tablet PO (08:27)
[2020-10-10] MEDS: Enoxaparin 40 MG/0.4 ML Syringe SC (08:28)
[2020-10-10] MEDS: Ziprasidone HCl 20 MG Capsule 80 MG PO (08:28)
[2020-10-10] MEDS: Memantine Hydrochloride 5 MG Tablet PO (08:28)
[2020-10-10] MEDS: Tamsulosin HCl 0.4 MG Capsule PO (08:28)
[2020-10-10] MEDS: Benztropine 2 MG Tablet 1 MG PO (08:31)
--- NOTE | 2020-10-10 09:36 | CASEMGMT ---
RONALD called [facility] and spoke with Sammie. She said that patient will have to quarantine, but they have compassionate care visits so the will still be able to visit. She also said that if the family wants to transport that is fine. RONALD called patient's and let her know above. She took SW's number and will call SW back with a picking machine operator time. RONALD faxed the orders and negative COVID test to [facility]. RONALD also completed a convalescent on [facility]. Await 's call to see when she will picking machine operator patient. Plan: d/c to [facility] under skilled level of care on a convalescent stay. Family will transport via private vehicle. Demetria DAIGLE
--- NOTE | 2020-10-10 10:13 | CASEMGMT ---
SW received a call from patient's and she said she and her family will be here at 1p to pickle pumper patient. RONALD notified RN, storage battery charger, police department secretary, and left a message for Sammie at [facility]. Plan: d/c to [facility] under skilled level of care on a convalescent stay. Patient's family will transport him via private vehicle at 1p. Demetria Walters MSW OXANA
--- NOTE | 2020-10-10 10:32 | PCM.DC.SUM ---
Documented by User: Kavon NEFF 10/10/20 13:28 Providers Date of Admission: 10/07/20 Primary Care Physician: Dr. Zac Sawyer, Reason For Visit: CVA, ALTERED MENTAL STATUS Diagnosis Discharge Diagnosis (1) Acute alteration in mental status: Status: Acute Code(s): R41.82 - Altered mental status, unspecified Medications at Discharge Home Medications amlodipine 5 mg PO DAILY 10/07/20 aspirin 81 mg PO QHS 10/07/20 benztropine 1 mg PO BID 10/07/20 divalproex 1,000 mg PO QHS 10/07/20 divalproex 500 mg PO BREAKFAST 10/07/20 doxepin 100 mg PO QHS 10/07/20 glimepiride 4 mg PO BID 10/07/20 levothyroxine 88 mcg PO QHS 10/07/20 lorazepam 1 mg PO BID 10/07/20 memantine 5 mg PO BID 10/07/20 metformin 1,000 mg PO BID 10/07/20 perphenazine 32 mg PO QHS 10/07/20 tamsulosin 0.4 mg PO DAILY 10/07/20 trazodone 300 mg PO QHS 10/07/20 ziprasidone HCl 80 mg PO BID 10/07/20 Hospital Course Procedures 2-D Echocardiogram Summary of Care Provided Minutes Spent on Discharge: 35 Hospital Course: 1) altered mental status, recent memory loss, weakness Has been following with neurology as an outpatient for above symptoms, possibly related to medication regimen for schizophrenia. Patient recently placed on memantine for suspected dementia. MRI negative. Head MRI negative. EEG unremarkable. Echocardiogram on 10/08/2020 demonstrated normal left ventricular size and systolic function, estimated EF of 65% and an indeterminate diastolic dysfunction. Patient will be discharged today to [facility] for half-way care. Follow-up with neurology and primary care provider within the next week. 2) schizophrenia Continue ziprasidone, perphenazine, lorazepam, doxepin, trazodone and Depakote. Follow-up with psychiatry within the next week. 3) DM2 Continue home Metformin and glimepiride. 4) CAD Continue aspirin, not on statin. Lipid panel reveals a low HDL at 34 mg/dL. Follow-up with primary care provider within the next week. 5) Hypothyroidism Continue home Synthroid. 6) HTN Continue home amlodipine. 7) MINNIE Patient refuses PAP therapy. Follow-up with primary care provider within the next week. 8) BPH Continue Flomax. Patient seen by Kavon Graham PA-C, under the supervision of Dr. Neville. Physical Exam Narrative Patient is a 70-year-old male comfortably resting in bed, alert and oriented to self. Difficult to assess patient mentation and condition as his speech is slurred and he is difficult to understand. Const alert and no apparent distress Nutritional Appearance: obese HEENT normocephalic, head/scalp atraumatic and hearing grossly normal bilaterally Eyes PERRL, EOMs intact bilaterally and conjunctivae normal Neck no lymphadenopathy, supple and no JVD Resp normal respiratory effort, no retractions, no use of accessory muscles and clear to auscultation bilaterally Cardio regular rate, regular rhythm, no murmurs and no JVD GI normal to inspection, nondistended, normoactive bowel sounds, soft to palpation, non-tender and non-distended Extremity normal to inspection, full ROM and no clubbing, cyanosis or edema Skin no rashes or lesions noted, no wounds and skin turgor normal Neuro no focal motor deficits and no sensory deficits noted Sensorium / Orientation: awake, alert and oriented to person Psych affect normal Weight / BMI Weight Weight: 327 lb 6.183 oz Body Mass Index (BMI) 46.5 ABG / Lab / Microbiology Data Result Diagrams: 10/07/20 09:55 10/09/20 06:26 Laboratory: Laboratory Results - last 24 hr 10/09/20 10/09/20 10/09/20 06:26 10:48 16:24 TSH 2.04 POC Glucose 214 H 196 H 10/09/20 10/10/20 21:23 06:34 TSH POC Glucose 202 H 138 H Microbiology: Microbiology 10/09/20 13:47 SARS-CoV-2 Antigen (Rapid) - Final Mucosa - Nose Microbiology 10/09/20 13:47 Mucosa - Nose SARS-CoV-2 Antigen (Rapid) - Final Meaningful Use Info Meaningful Use Diagnoses (Choose all that apply): None applicable Discharge Plan Admission Admit Date/Time: 10/07/20 15:49 Primary Reason for Your Visit: Schizophrenia, probable dementia Attending Provider: Miriam Neville Primary Care Provider: Zac Sawyer Instructions Additional Instructions / Restrictions: Patient Problems: Altered Health Status related to Hospitalization Patient Goals: *Optimal Level of Health *Keep Appointments *Medication Compliance *Remain Safe Discharge Orders/Prescriptions Prescriptions: Continued ziprasidone HCl 80 mg capsule 80 mg PO BID RF: 0 doxepin 50 mg capsule 100 mg PO QHS RF: 0 amlodipine 5 mg tablet 5 mg PO DAILY RF: 0 divalproex 500 mg tablet,delayed release (DR/EC) 500 mg PO BREAKFAST RF: 0 divalproex 500 mg tablet,delayed release (DR/EC) 1,000 mg PO QHS RF: 0 levothyroxine 88 mcg tablet 88 mcg PO QHS RF: 0 tamsulosin 0.4 mg capsule 0.4 mg PO DAILY RF: 0 metformin 1,000 mg tablet 1,000 mg PO BID RF: 0 glimepiride 4 mg tablet 4 mg PO BID RF: 0 benztropine 1 mg tablet 1 mg PO BID RF: 0 lorazepam 1 mg tablet 1 mg PO BID RF: 0 perphenazine 8 mg tablet 32 mg PO QHS RF: 0 memantine 5 mg tablet 5 mg PO BID RF: 0 trazodone 150 mg tablet 300 mg PO QHS RF: 0 aspirin 81 mg tablet,chewable 81 mg PO QHS RF: 0 Referrals / Follow Up: Neurologist, Primary [Other] - Within 1 Week Psychiatrist, Primary [Other] - Within 1 Week Zac Sawyer DO [Primary Care Provider] - In 1 Week Disposition Disposition (needs filled in before D/C Order can be placed): Senior Living Facility Documented by User: Dr. Miriam Neville MD 10/10/20 13:45 Providers Date of Admission: 10/07/20 Reason For Visit: CVA, ALTERED MENTAL STATUS Medications at Discharge Home Medications amlodipine 5 mg PO DAILY 10/07/20 aspirin 81 mg PO QHS 10/07/20 benztropine 1 mg PO BID 10/07/20 divalproex 1,000 mg PO QHS 10/07/20 divalproex 500 mg PO BREAKFAST 10/07/20 doxepin 100 mg PO QHS 10/07/20 glimepiride 4 mg PO BID 10/07/20 levothyroxine 88 mcg PO QHS 10/07/20 lorazepam 1 mg PO BID 10/07/20 memantine 5 mg PO BID 10/07/20 metformin 1,000 mg PO BID 10/07/20 perphenazine 32 mg PO QHS 10/07/20 tamsulosin 0.4 mg PO DAILY 10/07/20 trazodone 300 mg PO QHS 10/07/20 ziprasidone HCl 80 mg PO BID 10/07/20 ABG / Lab / Microbiology Data Result Diagrams: 10/07/20 09:55 10/09/20 06:26 Discharge Plan Admission Admit Date/Time: 10/07/20 15:49 Primary Reason for Your Visit: Schizophrenia, probable dementia Attending Provider: Miriam Neville Primary Care Provider: Zac Sawyer Instructions Additional Instructions / Restrictions: Patient Problems: Altered Health Status related to Hospitalization Patient Goals: *Optimal Level of Health *Keep Appointments *Medication Compliance *Remain Safe Discharge Orders/Prescriptions Prescriptions: Continued ziprasidone HCl 80 mg capsule 80 mg PO BID RF: 0 doxepin 50 mg capsule 100 mg PO QHS RF: 0 amlodipine 5 mg tablet 5 mg PO DAILY RF: 0 divalproex 500 mg tablet,delayed release (DR/EC) 500 mg PO BREAKFAST RF: 0 divalproex 500 mg tablet,delayed release (DR/EC) 1,000 mg PO QHS RF: 0 levothyroxine 88 mcg tablet 88 mcg PO QHS RF: 0 tamsulosin 0.4 mg capsule 0.4 mg PO DAILY RF: 0 metformin 1,000 mg tablet 1,000 mg PO BID RF: 0 glimepiride 4 mg tablet 4 mg PO BID RF: 0 benztropine 1 mg tablet 1 mg PO BID RF: 0 lorazepam 1 mg tablet 1 mg PO BID RF: 0 perphenazine 8 mg tablet 32 mg PO QHS RF: 0 memantine 5 mg tablet 5 mg PO BID RF: 0 trazodone 150 mg tablet 300 mg PO QHS RF: 0 aspirin 81 mg tablet,chewable 81 mg PO QHS RF: 0 Referrals / Follow Up: Neurologist, Primary [Other] - Within 1 Week Psychiatrist, Primary [Other] - Within 1 Week Zac Sawyer DO [Primary Care Provider] - In 1 Week Disposition Disposition (needs filled in before D/C Order can be placed): Senior Living Facility Charges/Coding Addendum Addendum: Hospitalist note: Discharge summary above reviewed and I concur with the above discharge and treatment plan. Patient presented to the emergency room because of reported questionable left-sided body weakness and increased confusion. Initially, there was a concern that patient may have acute stroke. CT scan brain showed no acute findings, no acute infarct or hemorrhage. MRI brain showed no evidence of acute infarct or hemorrhage. Upon examination, patient did have drift on the left upper extremity and obviously this was not because of stroke. Patient complained of chronic left shoulder pain and he received steroid injection to his left shoulder several weeks before admission. MRA of the head showed no significant vascular disease or stenosis. Acute stroke ruled out. Patient's vital signs remained stable throughout admission. He remained afebrile. Routine blood work was unremarkable. [facility] tele-neurology and recommended EEG which was done and was unremarkable. Seizure activity ruled out. Patient was on multiple medications for schizophrenia and depression. He has been following up with neurology as outpatient. [facility] tele-neurology recommended follow-up with neurology as well as psychiatry as outpatient. There was no evidence of acute pathology identified at this time. Patient was evaluated by PT OT and he was appropriate for placement to half-way facility. Patient discharged to SNF in a stable condition, continued on his previous home medications without any changes, plan to follow-up with neurology and psychiatry as outpatient, recommended follow-up with PCP in 1 week. - Physical Exam General: Alert, disoriented, Cooperative, No apparent distress. HEENT: Atraumatic, PERRLA, EOMI. Neck: Supple, No JVD, Negative Carotid Bruits, Trachea Midline, Thyroid Normal. Lungs: Clear to auscultation, Normal air movement, No rhonchi, No wheeze, No rales. Cardiovascular: Regular rate, Regular Rhythm, Normal S1, Normal S2, PMI Normal. Abdomen: Bowel Sounds Present, Soft, Non Tender, Non-Distended, No Hepato-splenomegaly. Extremities: No clubbing, No cyanosis, No edema Skin: No rashes, No breakdown Neurological: Cranial nerves are intact. Arm drift on the left upper extremity due to left shoulder pain and chronic arthritis. No focal deficit. Vital Signs are stable. Visit Charges Inpatient E&M: 02725 Disch Hosp
[2020-10-10 12:26] LABS: Bedside Glucose 173 mg/dL (70-110)
[2020-10-10 12:30] VITALS: BP 137/72; PULSE 86; RESP 16; TEMP 36.2; O2SAT 95
--- NOTE | 2020-10-10 13:36 | NURSING ---
called [facility], spoke with nurse Cathie. transported pt to [facility].
== END 2020-10-10 13:18 | disposition skilled nursing facility (03) | DRG 71 ==
LOC: ED 14:35 → PCU 15:58
PROVIDERS: Hospitalist; Emergency Provider Emergency Medicine; PCP Family Medicine; Visit Provider Hospitalist
DX: G93.40 Encephalopathy, unspecified (principal); Z68.42 Body mass index [BMI] 45.0-49.9, adult; R41.3 Other amnesia; R53.1 Weakness; F20.9 Schizophrenia, unspecified; E11.9 Type 2 diabetes mellitus without complications; I25.10 Atherosclerotic heart disease of native coronary artery without angina pectoris; E03.9 Hypothyroidism, unspecified; I10 Essential (primary) hypertension; G47.33 Obstructive sleep apnea (adult) (pediatric); N40.0 Benign prostatic hyperplasia without lower urinary tract symptoms; E66.01 Morbid (severe) obesity due to excess calories; R53.81 Other malaise; Z66 Do not resuscitate; M25.512 Pain in left shoulder; G89.29 Other chronic pain; Z79.84 Long term (current) use of oral hypoglycemic drugs; Z79.899 Other long term (current) drug therapy
CPT/HCPCS: 36415; 36600; 70450; 70544; 70551; 71045; 80048; 80061; 80076; 81001; 82803; 82962; 83735; 84443; 84484; 85025; 85610; 85730; 87426; 92507; 92523; 92526; 92610; 93005; 93306; 94762; 95819; 97110; 97162; 97166; 97530; 97535; 97802; 99285; Q9957; A4216; C8929; J3490

== ENCOUNTER 2020-10-11 21:25 | Emergency (ER) | payer MEDICARE, MEDICAID, SELFPAY ==
[2020-10-08 07:58] VITALS: BMI 46.5
[2020-10-11 21:31] VITALS: BP 151/105; PULSE 140; RESP 23; TEMP 36.6; O2SAT 96; BMI 47.7
[2020-10-11 21:34] VITALS: BP 151/105; PULSE 135; RESP 21; TEMP 36.6; O2SAT 98
[2020-10-11 21:37] VITALS: BP 151/105; PULSE 83; RESP 21; O2SAT 97; O2SAT 98
--- NOTE | 2020-10-11 21:58 | CT_ITS ---
EXAM: CT HEAD WITHOUT INTRAVENOUS CONTRAST : 1950 CLINICAL INDICATION: confusion TECHNIQUE: Multiple axial images were obtained of the head without intravenous contrast. This CT exam was performed using one or more of the following dose reduction techniques: automated exposure control, adjustment of the mA and/or kV according to patient size, and/or use of iterative reconstruction technique. This report was created using [email or web address] report generation technology. COMPARISON: None. FINDINGS: BRAIN AND EXTRA-AXIAL SPACES: Diffuse cerebral volume loss. Periventricular small vessel chronic ischemic change. No intra- or extra-axial hemorrhage. No intracranial mass or mass effect. Posterior fossa structures are unremarkable. No hydrocephalus. Basal cisterns are patent. BONES/JOINTS: Unremarkable. No discrete lytic or blastic abnormalities. VASCULATURE: Arterial calcifications. SINUSES: Unremarkable as visualized. Clear. MASTOID AIR CELLS: Unremarkable. Clear. ORBITS: Visualized globes, extraocular muscles, optic nerves and retrobulbar fat appear unremarkable. CT/Brain/Head without Contrast IMPRESSION: 1. No acute intracranial abnormalities. 2. Age-related changes. Individualized dose optimization techniques were used for this CT. at 2342 Reported and signed by: Deonte Brock MD Electronically Signed: Deonte Brock MD at 23:41 EDT Tel , Service support ,
--- NOTE | 2020-10-11 21:58 | EKG12_ITS ---
Test Reason : SOB Blood Pressure : / mmHG Vent. Rate : 134 BPM Atrial Rate : 134 BPM P-R Int : 140 ms QRS Dur : 090 ms QT Int : 300 ms P-R-T Axes : 095 -29 041 degrees QTc Int : 448 ms Sinus tachycardia with occasional Premature ventricular complexes Septal infarct , age undetermined Possible Inferior infarct , age undetermined Abnormal ECG Confirmed by ILANA BEE, MAHAMED ([id number]), editorial cartoonist LISA CHAPPELL ([id number]) on 10/14/2020 1:41:30 PM Referred By: TENNILLE Confirmed By:MAHAMED PRECIADO MD
[2020-10-11] MEDS: LORazepam 2 MG/ML Syringe 0.5 MG IV (22:36)
[2020-10-11 22:49] LABS: Absolute Lymphocyte Count 2.96 X10^3/uL (0.83-4.51); Absolute Neutrophil Count 4.2 X10^3/uL (2.0-7.7); Basophil# 0.02 X10^3/uL; Basophil% 0.2 % (0-1); Eosinophil# 0.53 X10^3/uL; Eosinophils% 6.2 % (0-5); Hemoglobin 13.7 g/dL (13.0-16.5); Lymphocyte # 2.96 X10^3/ul (0.83-4.51); Lymphocyte % 34.7 % (19-41); Mean Corp Hgb Conc 32.6 g/dL (32-36); Mean Corpuscular Hgb 30.9 pg (27.0-32.0); Mean Corpuscular Volume 94.8 fL (80-94); Mean Platelet Vol. 10.1 fl (6.2-12.0); Monocyte% 9.4 % (0-10); NRBC Flagged by Analyzer 0 % (0-5); Neutrophil # 4.19 X10^3/uL (2.7-7.7); Neutrophil % 49.1 % (47-70); Platelet Count 162 K/mm3 (150-450); RBC Distribution Width CV 13.7 % (11.6-14.6); RBC Distribution Width SD 47.7 fl (35.1-43.9); Red Blood Count 4.43 M/mm3 (4.6-6.2); White Blood Count 8.5 K/mm3 (4.4-11.0)
--- NOTE | 2020-10-11 22:50 | RAD_ITS ---
EXAM: XR CHEST, 1 VIEW : 1950 CLINICAL INDICATION: sob TECHNIQUE: Frontal view of the chest. This report was created using [employer] report generation technology. COMPARISON: 10/07/20. FINDINGS: LUNGS AND PLEURAL SPACES: Unremarkable. No consolidation or edema. No pneumothorax. No effusion. HEART: Unremarkable. Cardiac silhouette not enlarged. MEDIASTINUM: Central airways and mediastinal contour are unremarkable. BONES/JOINTS: Unremarkable. SOFT TISSUES: Unremarkable. RAD/Chest 1 View (Portable) IMPRESSION: No radiographic evidence of acute cardiopulmonary disease. at 2349 Reported and signed by: Deonte Brock MD Electronically Signed: Deonte Brock MD at 23:48 EDT Tel , Service support ,
[2020-10-11 23:09] LABS: Anion Gap 10 (5-15); BUN 6 mg/dL (7-18); BUN/Creat Ratio 6.1 RATIO (10-20); Calcium,Total 8.7 mg/dL (8.5-10.1); Chloride 99 mmol/L (98-107); Creatinine, Serum 0.99 mg/dL (0.70-1.30); EST Glomerular Filtration Rate 80 mL/min (>60); Est Glom Filt Rate - Afr Amer 97 mL/min (>60); Estimated Creatinine Clearance 72.71 ml/min; Glucose 167 mg/dL (74-106); Potassium 5.2 mmol/L (3.5-5.1); Sodium Level 133 mmol/L (136-145)
[2020-10-11 23:16] VITALS: BP 148/88; PULSE 134; RESP 21; TEMP 36.6; O2SAT 96
--- NOTE | 2020-10-11 23:52 | EX.ED.DYSGE1 ---
HPI <Dr. Mary Etienne MD - Last Filed: 10/12/20 23:54> History of Present Illness Chief Complaint: Mental Status Change Informant: patient, family, EMS and SNF Onset/Context/Timing Onset: Yesterday Current Severity: Moderate Maximum Severity: Moderate Narrative Narrative: Patient presents from ECF secondary to fast heart rate and decreased O2 sat. Patient was in the hospital October 07 with concerns for CVA and altered mental status. Work-up for stroke at that time was unremarkable. Patient reported has a history of schizophrenia and possible dementia. There was concerned that the altered mental status may be secondary to his medications. Because the patient was becoming more difficult to care for at home patient was placed in ECF for rehab. Family arrives at bedside and states the patient did not get all of his medications yesterday. They are not sure if he got all his medications today. They state that he has been very restless and agitated all day today. [facility] <Dr. Mary Etienne MD - Last Filed: 10/12/20 23:54> [facility] Medical History Arthritis Asthma Benign prostatic hyperplasia (BPH) with post-void dribbling Chest pain Congestive heart failure (CHF) Diabetes GERD (gastroesophageal reflux disease) Hyperlipidemia Hypertension Hypothyroid Kidney stones Schizophrenia Sleep apnea Home Medications amlodipine 5 mg PO DAILY 10/07/20 [History Last Taken 10/07/20] aspirin 81 mg PO QHS 10/07/20 [History Last Taken 10/06/20] benztropine 1 mg PO BID 10/07/20 [History Last Taken 10/07/20] divalproex 1,000 mg PO QHS 10/07/20 [History Last Taken 10/06/20] divalproex 500 mg PO BREAKFAST 10/07/20 [History Last Taken 10/07/20] doxepin 100 mg PO QHS 10/07/20 [History Last Taken 10/06/20] glimepiride 4 mg PO BID 10/07/20 [History Last Taken 10/07/20] levothyroxine 88 mcg PO QHS 10/07/20 [History Last Taken 10/06/20] lorazepam 1 mg PO BID 10/07/20 [History Last Taken 10/07/20] metformin 1,000 mg PO BID 10/07/20 [History Last Taken 10/07/20] perphenazine 32 mg PO QHS 10/07/20 [History Last Taken 10/06/20] tamsulosin 0.4 mg PO DAILY 10/07/20 [History Last Taken 10/06/20] trazodone 300 mg PO QHS 10/07/20 [History Last Taken 10/06/20] ziprasidone HCl 80 mg PO BID 10/07/20 [History Last Taken 10/07/20] memantine [Namenda] 5 mg PO BID 10/11/20 [History Last Taken Unknown] Allergy/AdvReac Type Severity Reaction Status Date / Time No Known Allergies Allergy Verified 10/11/20 21:30 Surgical History History of cholecystectomy Social History Smoking Status: Never smoker additional social history: Unable to obtain ROS <Dr. Mary Etienne MD - Last Filed: 10/12/20 23:54> ROS ED ROS Narrative Assisted by secondary to language barrier Review of Systems ROS Unobtainable: due to mental status Constitutional Constitutional ED: Denies chills or fever(s) Eyes Eyes: Denies change in vision ENT ENT ED: Reports other Details: Neck pain Cardiovascular Cardiovascular: Denies chest pain Respiratory/Chest Respiratory/Chest: Reports dyspnea Gastrointestinal Gastrointestinal: Denies diarrhea or vomiting Genitourinary Genitourinary ED: Denies dysuria Integumentary Denies rash Neurologic Neurologic: Denies headache(s) or weakness Psychiatric Psychiatric: Reports anxiety EXAM <Dr. Mary Etienne MD - Last Filed: 10/12/20 23:54> Physical Exam Const Vital Signs: 10/12/20 18:00 10/12/20 22:25 10/13/20 04:38 Pulse Rate 119 H 95 Respiratory Rate 16 18 16 Blood Pressure 169/96 H 136/70 H Blood Pressure Mean 120 92 Pulse Ox 94 Oxygen Delivery Method Room Air 10/13/20 05:29 10/13/20 06:25 10/13/20 07:00 Pulse Rate Respiratory Rate 16 16 16 Blood Pressure Blood Pressure Mean Pulse Ox Oxygen Delivery Method 10/13/20 08:00 10/13/20 09:00 10/13/20 10:29 Pulse Rate 16 L 107 H Respiratory Rate 18 16 Blood Pressure 150/96 H Blood Pressure Mean 114 Pulse Ox 98 Oxygen Delivery Method Room Air 10/13/20 11:00 10/13/20 12:00 Pulse Rate Respiratory Rate 18 18 Blood Pressure Blood Pressure Mean Pulse Ox Oxygen Delivery Method Positive well nourished and well developed General Appearance ED: well developed Eyes EOMs intact bilaterally Neck supple Chest Wall inspection of chest normal and palpation of chest normal Resp normal respiratory effort and clear to auscultation bilaterally Cardio Rate: tachycardic GI normal to inspection, nondistended, normoactive bowel sounds and non-tender Palpation: soft Neuro Neuro Narrative: Patient is alert. He will answer some questions. Family at bedside helps to translate secondary to language barrier. Skin no rashes or lesions noted <Dr. Dave Carvalho MD - Last Filed: 10/12/20 05:15> Physical Exam Const Vital Signs: 10/12/20 18:00 10/12/20 22:25 10/13/20 04:38 Pulse Rate 119 H 95 Respiratory Rate 16 18 16 Blood Pressure 169/96 H 136/70 H Blood Pressure Mean 120 92 Pulse Ox 94 Oxygen Delivery Method Room Air 10/13/20 05:29 10/13/20 06:25 10/13/20 07:00 Pulse Rate Respiratory Rate 16 16 16 Blood Pressure Blood Pressure Mean Pulse Ox Oxygen Delivery Method 10/13/20 08:00 10/13/20 09:00 10/13/20 10:29 Pulse Rate 16 L 107 H Respiratory Rate 18 16 Blood Pressure 150/96 H Blood Pressure Mean 114 Pulse Ox 98 Oxygen Delivery Method Room Air 10/13/20 11:00 10/13/20 12:00 Pulse Rate Respiratory Rate 18 18 Blood Pressure Blood Pressure Mean Pulse Ox Oxygen Delivery Method <Dr. Boogie Steven MD - Last Filed: 10/13/20 17:19> Physical Exam Const Vital Signs: 10/12/20 18:00 10/12/20 22:25 10/13/20 04:38 Pulse Rate 119 H 95 Respiratory Rate 16 18 16 Blood Pressure 169/96 H 136/70 H Blood Pressure Mean 120 92 Pulse Ox 94 Oxygen Delivery Method Room Air 10/13/20 05:29 10/13/20 06:25 10/13/20 07:00 Pulse Rate Respiratory Rate 16 16 16 Blood Pressure Blood Pressure Mean Pulse Ox Oxygen Delivery Method 10/13/20 08:00 10/13/20 09:00 10/13/20 10:29 Pulse Rate 16 L 107 H Respiratory Rate 18 16 Blood Pressure 150/96 H Blood Pressure Mean 114 Pulse Ox 98 Oxygen Delivery Method Room Air 10/13/20 11:00 10/13/20 12:00 Pulse Rate Respiratory Rate 18 18 Blood Pressure Blood Pressure Mean Pulse Ox Oxygen Delivery Method MDM <Dr. Mary Etienne MD - Last Filed: 10/12/20 23:54> [facility] Narrative Medical decision making narrative: Patient is placed on teletypesetter monitor. EKG and lab work is obtained. Urinalysis obtained. Head CT is obtained. Patient did not receive his normal perphenazine dose and he was given 60 mg p.o. here. He was given IV Ativan to help with restlessness and anxiety. Lab Data Attestation: I reviewed the patient's lab results. Labs: Laboratory Results - last 24 hr 10/11/20 10/11/20 10/12/20 22:39 22:39 00:07 WBC 8.5 RBC 4.43 L Hgb 13.7 Hct 42.0 MCV 94.8 H MCH 30.9 MCHC 32.6 RDW Std Deviation 47.7 H RDW Coeff of Areli 13.7 Plt Count 162 MPV 10.1 Immature Gran % (Auto) 0.400 Neut % (Auto) 49.1 Lymph % (Auto) 34.7 Bladen % (Auto) 9.4 Eos % (Auto) 6.2 H Baso % (Auto) 0.2 Absolute Neuts (auto) 4.2 Absolute Lymphs (auto) 2.96 Nucleated RBC % 0 Sodium 133 L Potassium 5.2 H Chloride 99 Carbon Dioxide 24.0 Anion Gap 10 BUN 6 L Creatinine 0.99 Estim Creat Clear Calc 72.71 Est GFR (MDRD) Af Amer 97 Est GFR (MDRD) Non-Af 80 BUN/Creatinine Ratio 6.1 L Glucose 167 H Calcium 8.7 Troponin I < 0.015 Urine Color Yellow Urine Clarity Clear Urine pH 6.5 Ur Specific [place] 1.010 Urine Protein Negative Urine Glucose (UA) Normal Urine Ketones 15 H Urine Occult Blood Negative Urine Nitrite Negative Urine Bilirubin Negative Urine Urobilinogen Normal Ur Leukocyte Esterase Negative Urine RBC 0 SEEN Urine WBC 0 SEEN Ur Squamous Epith Cells 0 SEEN Urine Bacteria 0 SEEN Urine Mucus 0 SEEN Radiography Chest X-Ray - ED: 1 View, Read by ED Physician and - (Poor inspiration. No obvious abnormalities.) Diagnostic Testing: Radiology Impression Brain CT 10/11/20 21:58 IMPRESSION: 1. No acute intracranial abnormalities. 2. Age-related changes. Individualized dose optimization techniques were used for this CT. at 2342 Reported and signed by: Deonte Brock MD Electronically Signed: Deonte Brock MD at 23:41 EDT Tel , Service support , Chest X-Ray 10/11/20 22:50 IMPRESSION: No radiographic evidence of acute cardiopulmonary disease. at 2349 Reported and signed by: Deonte Brock MD Electronically Signed: Deonte Brock MD at 23:48 EDT Tel , Service support , Chest CTA 10/12/20 00:01 IMPRESSION: No evidence of pulmonary embolism, but small segmental pulmonary emboli in the lower lobes are not excluded due to artifact caused by significant patient respiratory motion. Individualized dose optimization techniques were used for this CT. at 0154 Reported and signed by: Deonte Brock MD Electronically Signed: Deonte Brock MD at 1:54 EDT Tel , Service support , Soft Tissue Neck CT 10/12/20 00:32 IMPRESSION: No acute findings in the neck. Mild degenerative changes of the cervical spine. Individualized dose optimization techniques were used for this CT. at 0153 Reported and signed by: Deonte Brock MD Electronically Signed: Deonte Brock MD at 1:53 EDT Tel , Service support , EKG Initial EKG: Attestation: I personally reviewed and interpreted this EKG as follows: Interpretation: Sinus Tachycardia (Sinus tach at 134. Inferior Q waves noted. No acute ST change.) Treatment and Re-Evaluation Comments:: Test results discussed with patient's and daughter at bedside. Patient remains tachycardic in the 130s. He will be sent for a CTA of his chest to rule out PE. Patient will require hospitalization for better control of his symptoms before he go back to the ECF. Patient was sent out to oncoming physician for final disposition. This has been discussed with the patient's family. <Dr. Dave Carvalho MD - Last Filed: 10/12/20 05:15> [facility] MDM Narrative Medical decision making narrative: I took over care of this patient. He received 2 doses of IV Ativan, they did not help his agitation at all. Family and nursing were having trouble keeping him in the bed and he had significant psychomotor agitation, he clearly was picking at things in the air as if he saw things that did not exist. Family talked about him seeing things that he was telling them about. I gave him Haldol 5 mg IV it did not help at all. Therefore he was later given Geodon 20 mg, it appears that he is on Geodon 80 mg orally twice a day and did not receive at least 1 dose of that at the retirement, and this really helped to settle him down. On reevaluation his blood pressure is 135/79, his heart rate is still 120 it has come down though and this is soon after he is more sedated; treating him with a liter of IV normal saline. Family said something about him being constipated recently. I examined his abdomen. Obese, but very soft, nontender throughout, no rebound tenderness, no pulsatile mass, normal bowel sounds so I do not think he needs any emergent imaging of that at this time. I reviewed his recent hospital admission. He had a very thorough neurologic work-up including MRI, EEG, and neurology consultation. All this was negative and this is less than 48 hours from now. In discussing with family, they agree that this could be a worsening severity of what ever had been going on before. With this patient's history of dementia and schizophrenia, he has had visual hallucinations off and on in the past which are exacerbated now, and the rest of his work-up is negative showing no signs of any organic disease (his potassium was 5.2 but this was with hemolysis and normal renal function, and this is likely falsely elevated), I think placing him to geropsychiatry is most reasonable, in order to have him further evaluated and treated. Family is in agreement. I discussed the case with rubina. She discussed with Carla Jaquez, as given this patient's language barrier and family who can help when present, she thinks they would be the most appropriate facility given this context and they are relatively close location in [place]. 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 Lab Data Attestation: I reviewed the patient's lab results. Labs: Laboratory Results - last 24 hr 10/11/20 10/11/20 10/12/20 22:39 22:39 00:07 WBC 8.5 RBC 4.43 L Hgb 13.7 Hct 42.0 MCV 94.8 H MCH 30.9 MCHC 32.6 RDW Std Deviation 47.7 H RDW Coeff of Areli 13.7 Plt Count 162 MPV 10.1 Immature Gran % (Auto) 0.400 Neut % (Auto) 49.1 Lymph % (Auto) 34.7 Bladen % (Auto) 9.4 Eos % (Auto) 6.2 H Baso % (Auto) 0.2 Absolute Neuts (auto) 4.2 Absolute Lymphs (auto) 2.96 Nucleated RBC % 0 Sodium 133 L Potassium 5.2 H Chloride 99 Carbon Dioxide 24.0 Anion Gap 10 BUN 6 L Creatinine 0.99 Estim Creat Clear Calc 72.71 Est GFR (MDRD) Af Amer 97 Est GFR (MDRD) Non-Af 80 BUN/Creatinine Ratio 6.1 L Glucose 167 H Calcium 8.7 Troponin I < 0.015 Urine Color Yellow Urine Clarity Clear Urine pH 6.5 Ur Specific [place] 1.010 Urine Protein Negative Urine Glucose (UA) Normal Urine Ketones 15 H Urine Occult Blood Negative Urine Nitrite Negative Urine Bilirubin Negative Urine Urobilinogen Normal Ur Leukocyte Esterase Negative Urine RBC 0 SEEN Urine WBC 0 SEEN Ur Squamous Epith Cells 0 SEEN Urine Bacteria 0 SEEN Urine Mucus 0 SEEN Radiography Diagnostic Testing: Radiology Impression Brain CT 10/11/20 21:58 IMPRESSION: 1. No acute intracranial abnormalities. 2. Age-related changes. Individualized dose optimization techniques were used for this CT. at 2342 Reported and signed by: Deonte Brock MD Electronically Signed: Deonte Brock MD at 23:41 EDT Tel , Service support , Chest X-Ray 10/11/20 22:50 IMPRESSION: No radiographic evidence of acute cardiopulmonary disease. at 2349 Reported and signed by: Deonte Brock MD Electronically Signed: Deonte Brock MD at 23:48 EDT Tel , Service support , Chest CTA 10/12/20 00:01 IMPRESSION: No evidence of pulmonary embolism, but small segmental pulmonary emboli in the lower lobes are not excluded due to artifact caused by significant patient respiratory motion. Individualized dose optimization techniques were used for this CT. at 0154 Reported and signed by: Deonte Brock MD Electronically Signed: Deonte Brock MD at 1:54 EDT Tel , Service support , Soft Tissue Neck CT 10/12/20 00:32 IMPRESSION: No acute findings in the neck. Mild degenerative changes of the cervical spine. Individualized dose optimization techniques were used for this CT. at 0153 Reported and signed by: Deonte Brock MD Electronically Signed: Deonte Brock MD at 1:53 EDT Tel , Service support , EKG Initial EKG: Attestation: I personally reviewed and interpreted this EKG as follows: Interpretation: No Acute Injury Pattern and Sinus Tachycardia Comments: ant-sept Q waves Prior EKG tracings: available for review Prior: Unchanged <Dr. Boogie Steven MD - Last Filed: 10/13/20 17:19> [facility] MDM Narrative Medical decision making narrative: Maurizio: Patient was endorsed to me by the outgoing physician. Patient apparently throughout his stay in the emergency department has come back to his clinical baseline, family is present and now states that they feel comfortable with the patient at home. Patient will be dispositioned home, he will follow up with crisis for further treatment Lab Data Labs: Laboratory Results - last 24 hr 10/11/20 10/11/20 10/12/20 22:39 22:39 00:07 WBC 8.5 RBC 4.43 L Hgb 13.7 Hct 42.0 MCV 94.8 H MCH 30.9 MCHC 32.6 RDW Std Deviation 47.7 H RDW Coeff of Areli 13.7 Plt Count 162 MPV 10.1 Immature Gran % (Auto) 0.400 Neut % (Auto) 49.1 Lymph % (Auto) 34.7 Bladen % (Auto) 9.4 Eos % (Auto) 6.2 H Baso % (Auto) 0.2 Absolute Neuts (auto) 4.2 Absolute Lymphs (auto) 2.96 Nucleated RBC % 0 Sodium 133 L Potassium 5.2 H Chloride 99 Carbon Dioxide 24.0 Anion Gap 10 BUN 6 L Creatinine 0.99 Estim Creat Clear Calc 72.71 Est GFR (MDRD) Af Amer 97 Est GFR (MDRD) Non-Af 80 BUN/Creatinine Ratio 6.1 L Glucose 167 H Calcium 8.7 Troponin I < 0.015 Urine Color Yellow Urine Clarity Clear Urine pH 6.5 Ur Specific [place] 1.010 Urine Protein Negative Urine Glucose (UA) Normal Urine Ketones 15 H Urine Occult Blood Negative Urine Nitrite Negative Urine Bilirubin Negative Urine Urobilinogen Normal Ur Leukocyte Esterase Negative Urine RBC 0 SEEN Urine WBC 0 SEEN Ur Squamous Epith Cells 0 SEEN Urine Bacteria 0 SEEN Urine Mucus 0 SEEN Radiography Diagnostic Testing: Radiology Impression Brain CT 10/11/20 21:58 IMPRESSION: 1. No acute intracranial abnormalities. 2. Age-related changes. Individualized dose optimization techniques were used for this CT. at 2342 Reported and signed by: Deonte Brock MD Electronically Signed: Deonte Brock MD at 23:41 EDT Tel , Service support , Chest X-Ray 10/11/20 22:50 IMPRESSION: No radiographic evidence of acute cardiopulmonary disease. at 2349 Reported and signed by: Deonte Brock MD Electronically Signed: Deonte Brock MD at 23:48 EDT Tel , Service support , Chest CTA 10/12/20 00:01 IMPRESSION: No evidence of pulmonary embolism, but small segmental pulmonary emboli in the lower lobes are not excluded due to artifact caused by significant patient respiratory motion. Individualized dose optimization techniques were used for this CT. at 0154 Reported and signed by: Deonte Brock MD Electronically Signed: Deonte Brock MD at 1:54 EDT Tel , Service support , Soft Tissue Neck CT 10/12/20 00:32 IMPRESSION: No acute findings in the neck. Mild degenerative changes of the cervical spine. Individualized dose optimization techniques were used for this CT. at 0153 Reported and signed by: Deonte Brock MD Electronically Signed: Deonte Brock MD at 1:53 EDT Tel , Service support , Discharge Plan Triage Chief Complaint: Mental Status Change Other Complaint: Shortness of Breath ED Provider: Mary Etienne Dx/Rx/DC Orders Clinical Impression: Acute alteration in mental status, Tachycardia, Dementia with behavioral disturbance, Schizophrenia Instructions: ED DEMENTIA Alzheimer's Prescriptions: No Action ziprasidone HCl 80 mg capsule 80 mg PO BID RF: 0 doxepin 50 mg capsule 100 mg PO QHS RF: 0 amlodipine 5 mg tablet 5 mg PO DAILY RF: 0 divalproex 500 mg tablet,delayed release (DR/EC) 500 mg PO BREAKFAST RF: 0 divalproex 500 mg tablet,delayed release (DR/EC) 1,000 mg PO QHS RF: 0 levothyroxine 88 mcg tablet 88 mcg PO QHS RF: 0 tamsulosin 0.4 mg capsule 0.4 mg PO DAILY RF: 0 metformin 1,000 mg tablet 1,000 mg PO BID RF: 0 glimepiride 4 mg tablet 4 mg PO BID RF: 0 benztropine 1 mg tablet 1 mg PO BID RF: 0 lorazepam 1 mg tablet 1 mg PO BID RF: 0 perphenazine 8 mg tablet 32 mg PO QHS RF: 0 trazodone 150 mg tablet 300 mg PO QHS RF: 0 aspirin 81 mg tablet,chewable 81 mg PO QHS RF: 0 memantine [Namenda] 5 mg Tablet 5 mg PO BID RF: 0 Primary Care Provider: Zac Sawyer Referrals: Zac Sawyer DO [Primary Care Provider] - Activity Restrictions/Additional Instructions: Follow-up as directed by crisis, continue your current medication regimen
[2020-10-12] VITALS (11 sets, daily range): BP systolic 128–169; BP diastolic 70–96; PULSE 108–135; RESP 16–24; TEMP 36.5–36.6; O2SAT 91–96
--- NOTE | 2020-10-12 00:01 | CT_ITS ---
EXAM: CT ANGIOGRAPHY CHEST WITHOUT AND WITH INTRAVENOUS CONTRAST : 1950 CLINICAL INDICATION: pulmonary embolism TECHNIQUE: Helically acquired angiography images were obtained of the chest without and with intravenous contrast. This CT exam was performed using one or more of the following dose reduction techniques: automated exposure control, adjustment of the mA and/or kV according to patient size, and/or use of iterative reconstruction technique. This report was created using [employer] report generation technology. MIP reconstructed images were created and reviewed. CONTRAST: IV 100mL [id number] COMPARISON: None. FINDINGS: PULMONARY ARTERIES: No evidence of pulmonary embolism, but small segmental pulmonary emboli in the lower lobes are not excluded due to artifact caused by significant patient respiratory motion. Normal in caliber. AORTA: Unremarkable. Normal in caliber. No evidence of dissection. GREAT VESSELS OF AORTIC ARCH: Unremarkable. Normal in caliber. No evidence of dissection. LUNGS AND PLEURAL SPACES: Unremarkable. No mass. No consolidation or edema. No pleural effusion or thickening. No pneumothorax. HEART: Mild cardiomegaly. No pericardial effusion. No signs of right heart strain. MEDIASTINUM: Unremarkable. No mediastinal or hilar adenopathy. Esophagus is unremarkable. No hiatal hernia. THYROID: Unremarkable. No thyroid lesions. BONES/JOINTS: Degenerative changes of the spine. No suspicious lytic or blastic abnormality. CT/CTA Chest W/WO Contrast IMPRESSION: No evidence of pulmonary embolism, but small segmental pulmonary emboli in the lower lobes are not excluded due to artifact caused by significant patient respiratory motion. Individualized dose optimization techniques were used for this CT. at 0154 Reported and signed by: Deonte Brock MD Electronically Signed: Deonte Brock MD at 1:54 EDT Tel , Service support ,
[2020-10-12 00:15] LABS: Bacteria 0 SEEN /hpf (None Seen); Mucous, Urine 0 SEEN /hpf (<or=2+); Red Blood Cells-Urine 0 SEEN /hpf (0-5); Squamous Epithelial Cells - UA 0 SEEN /hpf (0-5); White Blood Cells 0 SEEN /hpf (0-5)
[2020-10-12 00:19] LABS: Color, Urine Yellow (Yellow); Glucose, Dipstick Normal (Normal); Ketone-Dipstick 15 mg/dl (Negative); Leukocyte Esterase-Dipstick Negative /ul (Negative); Nitrite-Dipstick Negative (Negative); Occult Blood-Urine Negative /ul (Negative); Protein-Dipstick Negative (Negative); Urine Bilirubin Dipstick Negative (Negative); Urine Clarity Clear (Clear); Urine Urobilinogen Normal (Normal); Urine pH 6.5 (5.0 - 8.0)
--- NOTE | 2020-10-12 00:30 | ED.RN ---
PER REPORT, 0.5MG ATIVAN GIVEN BY ASTER WYATT.
--- NOTE | 2020-10-12 00:32 | CT_ITS ---
EXAM: CT NECK WITHOUT INTRAVENOUS CONTRAST : 1950 CLINICAL INDICATION: neck pain TECHNIQUE: Helically acquired images were obtained of the neck without intravenous contrast. This CT exam was performed using one or more of the following dose reduction techniques: automated exposure control, adjustment of the mA and/or kV according to patient size, and/or use of iterative reconstruction technique. This report was created using [employer] report generation technology. COMPARISON: None. FINDINGS: NASOPHARYNX: Unremarkable. SUPRAHYOID NECK: Unremarkable. Oropharynx, oral cavity, parapharyngeal space and retropharyngeal space are unremarkable. INFRAHYOID NECK: Unremarkable. The larynx, hypopharynx and supraglottis are unremarkable. SUBMANDIBULAR/PAROTID GLANDS: Unremarkable. Glands are normal in size. THYROID: Unremarkable. No enlarged or calcified nodules. BONES/JOINTS: Mild degenerative disc disease of the spine predominantly at C4/5 and C5/6. No acute fracture. SOFT TISSUES: Unremarkable. VASCULATURE: No acute findings. LYMPH NODES: Unremarkable. No lymphadenopathy. LUNG APICES: Unremarkable as visualized. CT/Soft Tissue Neck without Contr IMPRESSION: No acute findings in the neck. Mild degenerative changes of the cervical spine. Individualized dose optimization techniques were used for this CT. at 0153 Reported and signed by: Deonte Brock MD Electronically Signed: Deonte Brock MD at 1:53 EDT Tel , Service support ,
[2020-10-12] MEDS: Haloperidol Lactate 5 MG/ML Vial IV (02:24)
--- NOTE | 2020-10-12 02:27 | ED.RN ---
PT REMAINS RESTLESS. HALDOL GIVEN. REASSURANCE AND SUPPORT GIVEN TO PT AND FAMILY.
[2020-10-12] MEDS: Ziprasidone IM 20 MG/ML VIAL IM (03:11)
--- NOTE | 2020-10-12 04:51 | ED.RN ---
FAXED REPORT TO [facility] PER REQUEST OF CRISIS, THEY WILL LOOK AT IT IN THE MORNING
[2020-10-12] MEDS: 0.9% Normal Saline 1,000 ML 999 ML IV (05:52)
[2020-10-12] MEDS: LORazepam 2 MG/ML Syringe 1 MG IV (08:07)
[2020-10-12] MEDS: Ziprasidone IM 20 MG/ML VIAL 10 MG IM (08:07)
--- NOTE | 2020-10-12 12:15 | ED.RN ---
PER JENNYFER WITH ASSURANCE, DECLINING PT DUE TO LANGUAGE BARRIER BASICALLY
--- NOTE | 2020-10-12 14:07 | NURSING ---
PENDING GENERATIONS ANGELICA Arthur
--- NOTE | 2020-10-12 14:30 | CASEMGMT ---
Addendum entered by Torrie Poe 10/12/20 17:28: Ashley from [facility]. advised that patient was declined by [facility], Domonique, Inna and Carla. SW received call from [facility]. They can not have patient come to the [facility] who do not have COVID vaccine. Patient could be put on wait list for [facility] for Wednesday. SW called [facility] they have no beds. SW spoke to family. They advised that the SW is continuing to look for placement. Updated as to where staff is looking for placement. Family, daughter Annetta, asked if patient gets accepted if family could research the facility and this underwriter mortgage loan said that due to the number of limited placements if a bed becomes available we need to proceed forward and she verbalized understanding. SW called [facility]. No beds until Wednesday. SW called [facility]. No beds until Wednesday. SW called Zoe at [place]. They could review patient for wait list tomorrow. SW faxed referral to [facility]. SW called [facility]- no beds SW called [facility]- No beds. SW called [facility] in [place]. No beds. SW called patient's daughter, Annetta, and updated her regarding patient. She said that [facility] in [place] would be closer than [place]. SW educated daughter that bed availability is very limited and thus when bed is available it is in the patient's best interest to place him in the setting that is available. Annetta asked for this underwriter mortgage loan's contact number and it was provided. Annetta asked if [facility] could be provided with her contact number for updates. Annetta's number is [phone]. 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 Ashley stated that she left the packet of referral information in this underwriter mortgage loan's office. Ashley provided history. Patient speaks minimal s[place] le[place]an and language of origin is [place]anian. SW received call from [facility]. They declined patient but referred patient to [facility]. RONALD called intake at [facility] and spoke to Kavon. They have one male bed however, they indicated that the bed may be filed as their MD is reviewing information. They recommended [facility] in [place]. SW called [facility] and made referral for patient. RONALD then faxed referral information to [facility] for review. Plan: Inpatient psych unit. Torrie BRYAN
--- NOTE | 2020-10-12 20:47 | ED.RN ---
ELLIE DOBBS CALLED WITH QUESTIONS REGARDING PT'S INDEPENDENCE WITH ADLS.
--- NOTE | 2020-10-12 21:11 | ED.RN ---
[facility] DENIED DUE TO HIS BEHAVIOR
[2020-10-12] MEDS: Benztropine 2 MG Tablet 1 MG PO (21:37)
[2020-10-12] MEDS: Memantine Hydrochloride 5 MG Tablet PO (21:39)
[2020-10-12] MEDS: Levothyroxine 88 MCG Tablet PO (21:39)
[2020-10-12] MEDS: Ziprasidone HCl 20 MG Capsule 80 MG PO (21:39)
[2020-10-12] MEDS: DOXEPIN HCL 50 MG CAPSULE 100 MG PO (21:39)
[2020-10-12] MEDS: traZODone 100 MG Tablet 300 MG PO (21:39)
[2020-10-12] MEDS: Divalproex Sodium 250 MG Tablet 1000 MG PO (21:40)
[2020-10-12] MEDS: Aspirin 81 MG TAB.CHEW PO (21:51)
--- NOTE | 2020-10-12 22:20 | CM.ED ---
SW Referral Note RONALD was advised that patient had been declined for [facility]. RONALD called [facility] and spoke to Archana. Archana said that patient is first up to [facility] for review at their [place] facility on Wednesday. RONALD called daughter, Annetta and updated her that [facility] Declined patient and that patient is up for review on Wednesday at [facility]. weave room supervisor and MD notified. RONALD called Shira at [facility] and updated her about patient and what facilities had been contacted for him. RONALD requested that community engagement leader fax referral form to [facility]. Torrie BRYAN
[2020-10-13] VITALS (10 sets, daily range): BP systolic 107–150; BP diastolic 69–96; PULSE 16–125; RESP 16–18; O2SAT 97–98
[2020-10-13] MEDS: metFORMIN HCl 1,000 MG Tablet 1000 MG PO (08:30)
[2020-10-13] MEDS: Divalproex Sodium 250 MG Tablet 500 MG PO (08:30)
[2020-10-13] MEDS: Glimepiride 4 MG Tablet PO (08:30)
[2020-10-13] MEDS: Tamsulosin HCl 0.4 MG Capsule PO (10:44)
[2020-10-13] MEDS: Ziprasidone HCl 20 MG Capsule 80 MG PO (10:44)
[2020-10-13] MEDS: Memantine Hydrochloride 5 MG Tablet PO (10:45)
[2020-10-13] MEDS: amLODIPine 5 MG Tablet PO (10:45)
--- NOTE | 2020-10-13 10:45 | NURSING ---
PER CONNIE WITH CRISIS PT IS PENDING AT [facility] BUT WE WILL NOT KNOW ANYTHING UNTIL WEDNESDAY. PT HAS BEEN DENIED EVERYWHERE SO WE ARE HOLDING OUT ON [facility]EPT[facility] BECAUSE IF HE DOESNT GET PLACED THERE WE DONT KNOW WHERE TO GO FROM THERE
[2020-10-13] MEDS: Benztropine 2 MG Tablet 1 MG PO (10:46)
--- NOTE | 2020-10-13 18:06 | ED.RN ---
PER FAMILY THEY WANTED TO GIVE ALL THE NIGHT TIME MEDS AT HOME.
== END 2020-10-13 18:06 | disposition home or self-care (01) ==
PROVIDERS: Emergency Provider Emergency Medicine; PCP Family Medicine
DX: R41.82 Altered mental status, unspecified (principal); R00.0 Tachycardia, unspecified; F03.91 Unspecified dementia, unspecified severity, with behavioral disturbance; F20.9 Schizophrenia, unspecified; E11.9 Type 2 diabetes mellitus without complications; E03.9 Hypothyroidism, unspecified; N40.0 Benign prostatic hyperplasia without lower urinary tract symptoms; Z79.82 Long term (current) use of aspirin; Z79.899 Other long term (current) drug therapy
CPT/HCPCS: 70450; 70490; 71045; 71275; 80048; 81001; 84484; 85025; 93005; 96372; 96374; 96375; 96376; 99285; J7030; A4216; J3486

== ENCOUNTER 2020-10-16 10:43 | Emergency (ER) | payer MEDICARE, MEDICAID, SELFPAY ==
[2020-10-16 10:51] VITALS: BP 121/68; PULSE 75; RESP 15; TEMP 36.4; O2SAT 91; BMI 51.0
[2020-10-16 11:20] VITALS: O2SAT 95
--- NOTE | 2020-10-16 11:27 | EKG12_ITS ---
Test Reason : Blood Pressure : / mmHG Vent. Rate : 077 BPM Atrial Rate : 077 BPM P-R Int : 180 ms QRS Dur : 100 ms QT Int : 582 ms P-R-T Axes : 049 -35 056 degrees QTc Int : 658 ms Normal sinus rhythm Left axis deviation Nonspecific T wave abnormality Prolonged QT Abnormal ECG Confirmed by TONIA BEE, RADHA ([id number]), photographic editor LISA CHAPPELL ([id number]) on 10/18/2020 10:42:20 A M Referred By: RUDDY Confirmed By:ZENA RANDALL MD
--- NOTE | 2020-10-16 11:28 | EX.ED.DYSGE1 ---
HPI History of Present Illness Chief Complaint: Unresponsive Informant: patient and EMS Onset/Context/Timing Onset: Today Context: Gradual Onset Timing: Continuous Current Severity: Mild Maximum Severity: Mild Narrative Narrative: Older male sent in from adult daycare for decreased mental status. Recent similar episode that was found that he was hypoxic when he goes to sleep. Patient himself is a very limited informant. He was recently hospitalized. Prior similar symptoms: Yes Recent Illness/Hospitalization: Yes [facility] Medical History Arthritis Asthma Benign prostatic hyperplasia (BPH) with post-void dribbling Chest pain Congestive heart failure (CHF) Diabetes GERD (gastroesophageal reflux disease) Hyperlipidemia Hypertension Hypothyroid Kidney stones Schizophrenia Sleep apnea Home Medications amlodipine 5 mg PO DAILY 10/07/20 [History Last Taken 10/07/20] aspirin 81 mg PO QHS 10/07/20 [History Last Taken 10/06/20] benztropine 1 mg PO BID 10/07/20 [History Last Taken 10/07/20] divalproex 1,000 mg PO QHS 10/07/20 [History Last Taken 10/06/20] divalproex 500 mg PO BREAKFAST 10/07/20 [History Last Taken 10/07/20] doxepin 100 mg PO QHS 10/07/20 [History Last Taken 10/06/20] glimepiride 4 mg PO BID 10/07/20 [History Last Taken 10/07/20] levothyroxine 88 mcg PO QHS 10/07/20 [History Last Taken 10/06/20] lorazepam 1 mg PO BID 10/07/20 [History Last Taken 10/07/20] metformin 1,000 mg PO BID 10/07/20 [History Last Taken 10/07/20] perphenazine 32 mg PO QHS 10/07/20 [History Last Taken 10/06/20] tamsulosin 0.4 mg PO DAILY 10/07/20 [History Last Taken 10/06/20] trazodone 300 mg PO QHS 10/07/20 [History Last Taken 10/06/20] ziprasidone HCl 80 mg PO BID 10/07/20 [History Last Taken 10/07/20] memantine [Namenda] 5 mg PO BID 10/11/20 [History Last Taken Unknown] Allergy/AdvReac Type Severity Reaction Status Date / Time No Known Allergies Allergy Verified 10/11/20 21:30 Surgical History History of cholecystectomy Social History Smoking Status: Never smoker additional social history: Unable to obtain ROS ROS ED ROS Narrative Unable to obtain at this time due to his overall mental status, Review of Systems ROS Unobtainable: due to mental status EXAM Physical Exam Narrative Exam Narrative: Older male no acute distress initial pulse ox was 90 or below on 3 L he was 91% on 5 L is 95%. He follows limited commands. He really is not much of an informant. Const Vital Signs: 10/16/20 10:51 10/16/20 11:20 10/16/20 12:36 Temperature 97.5 F L Temperature Source Temporal Pulse Rate 75 73 Respiratory Rate 15 16 Blood Pressure 121/68 H 135/75 H Blood Pressure Mean 85 95 Pulse Ox 91 95 97 Oxygen Delivery Method Nasal Cannula Nasal Cannula Room Air Oxygen Flow Rate (L/min) 3 5 10/16/20 13:07 Temperature Temperature Source Pulse Rate 74 Respiratory Rate 13 Blood Pressure 123/78 H Blood Pressure Mean 93 Pulse Ox 95 Oxygen Delivery Method Room Air Oxygen Flow Rate (L/min) Positive well nourished and well developed General Appearance ED: well developed HEENT Reports moist mucous membranes Negative for trauma or tenderness Eyes PERRL and EOMs intact bilaterally Neck no lymphadenopathy, supple and no JVD General: Negative for tenderness Chest Wall inspection of chest normal and palpation of chest normal Resp normal respiratory effort and clear to auscultation bilaterally Auscultation: diminished lung sounds Cardio regular rate, regular rhythm and no murmurs GI normal to inspection, nondistended, normoactive bowel sounds, non-tender, non-distended and no masses Inspection: Negative for abdominal distention Auscultation: normoactive bowel sounds Palpation: soft; Negative for tender, guarding or rebound tenderness present Back/Spine no CVA tenderness Extremity Negative for normal to inspection Extremity Narrative: Trace bilateral lower extremity edema. General Extremety ED: Yes edema; Negative for tenderness General Extremity: edema Neuro Neuro Narrative: Patient's eyes are open. He follows limited commands. He gives very limited answers. He does move all 4 extremities. Sensorium / Orientation: alert Psych mental status grossly normal Skin no rashes or lesions noted and no wounds MDM MDM MDM Narrative Medical decision making narrative: Older male from adult daycare hypoxic off of O2 and decreased mental status. Similar event for which he was recently hospitalized found to be hypoxic without oxygen at that time. Repeat exam at 1:45 in the afternoon patient is doing well. Currently is awake and alert. His is not present in the room she states that he is at his baseline. She and I discussed his last work-up and the problem with him becoming hypoxic. She told me that he does not have oxygen at home. I am and have nursing and marriage and family social worker looking into that to see if we can help somehow get that arranged. Lab Data Attestation: I reviewed the patient's lab results. Lab results narrative: Patient CBC was unremarkable white count 7. Hemoglobin 13.5. Chemistries unremarkable gap is 7. Creatinine of 1. Liver enzymes unremarkable. UA negative. Glucose elevated 270. Arterial blood gases a pH of 7.34 with a PCO2 of 49 and a PO2 of 94. Labs: Laboratory Results - last 24 hr 10/16/20 10/16/20 10/16/20 11:50 11:50 12:42 WBC 7.1 RBC 4.31 L Hgb 13.5 Hct 41.5 MCV 96.3 H MCH 31.3 MCHC 32.5 RDW Std Deviation 50.1 H RDW Coeff of Areli 14.1 Plt Count 193 MPV 9.6 Immature Gran % (Auto) 0.100 Neut % (Auto) 37.5 L Lymph % (Auto) 42.5 H [place] % (Auto) 9.9 Eos % (Auto) 9.6 H Baso % (Auto) 0.4 Absolute Neuts (auto) 2.7 Absolute Lymphs (auto) 3.02 Nucleated RBC % 0 Sodium 136 Potassium 4.2 Chloride 100 Carbon Dioxide 29.0 Anion Gap 7 BUN 11 Creatinine 1.02 Estim Creat Clear Calc 66.13 Est GFR (MDRD) Af Amer 93 Est GFR (MDRD) Non-Af 77 BUN/Creatinine Ratio 10.8 Glucose 270 H Calcium 8.5 Total Bilirubin 0.30 AST 19 ALT 29 Alkaline Phosphatase 89 Total Protein 6.5 Albumin 3.5 Globulin 3.0 Albumin/Globulin Ratio 1.2 Urine Color Yellow Urine Clarity Clear Urine pH 5.0 Ur Specific [place] 1.020 Urine Protein Negative Urine Glucose (UA) 250 H Urine Ketones 5 H Urine Occult Blood Negative Urine Nitrite Negative Urine Bilirubin Negative Urine Urobilinogen Normal Ur Leukocyte Esterase Negative Urine RBC 0 SEEN Urine WBC 0 SEEN Ur Squamous Epith Cells 0-5 SEEN Urine Bacteria 0 SEEN Urine Mucus 0 SEEN POC Glucose 10/16/20 12:50 WBC RBC Hgb Hct MCV MCH MCHC RDW Std Deviation RDW Coeff of Areli Plt Count MPV Immature Gran % (Auto) Neut % (Auto) Lymph % (Auto) [place] % (Auto) Eos % (Auto) Baso % (Auto) Absolute Neuts (auto) Absolute Lymphs (auto) Nucleated RBC % Sodium Potassium Chloride Carbon Dioxide Anion Gap BUN Creatinine Estim Creat Clear Calc Est GFR (MDRD) Af Amer Est GFR (MDRD) Non-Af BUN/Creatinine Ratio Glucose Calcium Total Bilirubin AST ALT Alkaline Phosphatase Total Protein Albumin Globulin Albumin/Globulin Ratio Urine Color Urine Clarity Urine pH Ur Specific [place] Urine Protein Urine Glucose (UA) Urine Ketones Urine Occult Blood Urine Nitrite Urine Bilirubin Urine Urobilinogen Ur Leukocyte Esterase Urine RBC Urine WBC Ur Squamous Epith Cells Urine Bacteria Urine Mucus POC Glucose 261 H ABG Data ABG results: ABG 10/16/20 12:02 Specimen Type ART Sample Site R Brach pH 7.35 Bicarbonate Actual 27.0 H Total CO2 29 Base Excess 1 O2 Saturation 97 ABG pCO2 49.3 H ABG pO2 95 O2 Delivery Device Cannula Liter Flow 5.0 Radiography Chest X-Ray - ED: 1 View, Read by ED Physician, Read by Radiologist, Normal, Heart, Mediastinum, Bony Structures and CHF Diagnostic Testing: Radiology Impression Chest X-Ray 10/16/20 11:58 IMPRESSION: Findings suggestive of a mild degree of CHF with bibasilar atelectasis. Electronically Signed: Lester Castillo MD at 12:21 EDT , Service support , EKG Initial EKG: Attestation: I personally reviewed and interpreted this EKG as follows: Interpretation: Sinus Rhythm and No Acute Injury Pattern Comments: Normal sinus rhythm rate of 77 with no acute signs of MS or ischemia. Prior EKG tracings: not available for review Discharge Plan Triage Chief Complaint: Unresponsive ED Provider: Puri,Benigno Dx/Rx/DC Orders Clinical Impression: Hypoxia, Acute alteration in mental status Instructions: ED ALOC Prescriptions: No Action ziprasidone HCl 80 mg capsule 80 mg PO BID RF: 0 doxepin 50 mg capsule 100 mg PO QHS RF: 0 amlodipine 5 mg tablet 5 mg PO DAILY RF: 0 divalproex 500 mg tablet,delayed release (DR/EC) 500 mg PO BREAKFAST RF: 0 divalproex 500 mg tablet,delayed release (DR/EC) 1,000 mg PO QHS RF: 0 levothyroxine 88 mcg tablet 88 mcg PO QHS RF: 0 tamsulosin 0.4 mg capsule 0.4 mg PO DAILY RF: 0 metformin 1,000 mg tablet 1,000 mg PO BID RF: 0 glimepiride 4 mg tablet 4 mg PO BID RF: 0 benztropine 1 mg tablet 1 mg PO BID RF: 0 lorazepam 1 mg tablet 1 mg PO BID RF: 0 perphenazine 8 mg tablet 32 mg PO QHS RF: 0 trazodone 150 mg tablet 300 mg PO QHS RF: 0 aspirin 81 mg tablet,chewable 81 mg PO QHS RF: 0 memantine [Namenda] 5 mg Tablet 5 mg PO BID RF: 0 Primary Care Provider: Zac Sawyer Referrals: Zac Sawyer DO [Primary Care Provider] - 3-5 Days if not improving Activity Restrictions/Additional Instructions: Whenever he is not using oxygen his oxygen drops and he does not act normally. Otherwise today his chest x-ray and labs are unremarkable. His blood sugar is slightly elevated at 270. He needs to be on oxygen at home. I will see if we can help you get that arranged. Return if he is worse or follow-up your primary care physician. Disposition Disposition: Home, self care
--- NOTE | 2020-10-16 11:58 | RAD_ITS ---
STUDY: X-RAY CHEST REASON FOR EXAM: Male, 70 years old. Hypoxia TECHNIQUE: Single AP portable view of the chest. COMPARISON: Comparison is made with prior examination dated 10/11/2020. FINDINGS: EKG electrodes are seen. Elevation of the right hemidiaphragm. Mild increased markings at the lung bases suggestive of bibasilar atelectasis. There is also evidence of vascular congestion and mild degree of CHF. There is no demonstrated pleural abnormality. There is borderline cardiomegaly. Normal mediastinum and arabella. Normal visualized pulmonary arteries. There is atherosclerotic calcification of the aortic arch with tortuosity. Normal visualized thoracic spine. Normal visualized ribs, clavicles, and shoulders. There is no demonstrated abnormality of the visualized soft tissue structures of the upper abdomen. RAD/Chest 1 View (Portable) IMPRESSION: Findings suggestive of a mild degree of CHF with bibasilar atelectasis. Electronically Signed: Lester Castillo MD at 12:21 EDT , Service support ,
[2020-10-16 12:01] LABS: Absolute Lymphocyte Count 3.02 X10^3/uL (0.83-4.51); Absolute Neutrophil Count 2.7 X10^3/uL (2.0-7.7); Basophil# 0.03 X10^3/uL; Basophil% 0.4 % (0-1); Eosinophil# 0.68 X10^3/uL; Eosinophils% 9.6 % (0-5); Hematocrit 41.5 % (40-54); Hemoglobin 13.5 g/dL (13.0-16.5); Lymphocyte # 3.02 X10^3/ul (0.83-4.51); Lymphocyte % 42.5 % (19-41); Mean Corp Hgb Conc 32.5 g/dL (32-36); Mean Corpuscular Hgb 31.3 pg (27.0-32.0); Mean Corpuscular Volume 96.3 fL (80-94); Mean Platelet Vol. 9.6 fl (6.2-12.0); Monocyte% 9.9 % (0-10); NRBC Flagged by Analyzer 0 % (0-5); Neutrophil # 2.66 X10^3/uL (2.7-7.7); Neutrophil % 37.5 % (47-70); Platelet Count 193 K/mm3 (150-450); RBC Distribution Width CV 14.1 % (11.6-14.6); RBC Distribution Width SD 50.1 fl (35.1-43.9); Red Blood Count 4.31 M/mm3 (4.6-6.2); White Blood Count 7.1 K/mm3 (4.4-11.0)
[2020-10-16 12:06] LABS: Base Excess 1 mmol/L (-2 to +2); Blood Gas Specimen Type ART; O2 Delivery Device Cannula; PO2 95 mmHG (75-100); SITE R Brach; SO2 97 % (95-99); Total Carbon Dioxide 29 mmol/L; pCO2 49.3 mmHg (35-45); pH 7.35 (7.35-7.45)
[2020-10-16 12:16] LABS: ALB/GLOB Ratio 1.2 RATIO (0.9-2.4); AST(SGOT) 19 U/L (15-37); Alanine Aminotransfer ALT/SGPT 29 U/L (16-61); Albumin, Serum 3.5 g/dL (3.2-5.0); Alkaline Phosphatase 89 U/L (45-117); Anion Gap 7 (5-15); BUN 11 mg/dL (7-18); BUN/Creat Ratio 10.8 RATIO (10-20); Calcium,Total 8.5 mg/dL (8.5-10.1); Chloride 100 mmol/L (98-107); Creatinine, Serum 1.02 mg/dL (0.70-1.30); EST Glomerular Filtration Rate 77 mL/min (>60); Est Glom Filt Rate - Afr Amer 93 mL/min (>60); Estimated Creatinine Clearance 66.13 ml/min; Glucose 270 mg/dL (74-106); Potassium 4.2 mmol/L (3.5-5.1); Protein, Total 6.5 g/dL (6.4-8.2); Sodium Level 136 mmol/L (136-145)
[2020-10-16 12:36] VITALS: BP 135/75; PULSE 73; RESP 16; O2SAT 97
[2020-10-16 12:51] LABS: Bacteria 0 SEEN /hpf (None Seen); Mucous, Urine 0 SEEN /hpf (<or=2+); Red Blood Cells-Urine 0 SEEN /hpf (0-5); White Blood Cells 0 SEEN /hpf (0-5)
[2020-10-16 12:56] LABS: Bedside Glucose 261 mg/dL (70-110)
[2020-10-16 12:56] LABS: Color, Urine Yellow (Yellow); Glucose, Dipstick 250 mg/dl (Normal); Ketone-Dipstick 5 mg/dl (Negative); Leukocyte Esterase-Dipstick Negative /ul (Negative); Nitrite-Dipstick Negative (Negative); Occult Blood-Urine Negative /ul (Negative); Protein-Dipstick Negative (Negative); Urine Bilirubin Dipstick Negative (Negative); Urine Clarity Clear (Clear); Urine Urobilinogen Normal (Normal)
--- NOTE | 2020-10-16 12:56 | ED.RN ---
pt was found standing at the end of the bed. oxygen was removed. both bed rails were up and end of the bed was elevated. pt was walked to restroom with a steady gait without assistive [place] [id number]
[2020-10-16 13:01] LABS: Squamous Epithelial Cells - UA 0-5 SEEN /hpf (0-5)
[2020-10-16 13:07] VITALS: BP 123/78; PULSE 74; RESP 13; O2SAT 95
[2020-10-16 14:53] VITALS: BP 167/80; PULSE 72; RESP 12; O2SAT 95
== END 2020-10-16 14:54 | disposition home or self-care (01) ==
PROVIDERS: Emergency Provider Emergency Medicine; PCP Family Medicine
DX: R09.02 Hypoxemia (principal); R41.82 Altered mental status, unspecified; M19.90 Unspecified osteoarthritis, unspecified site; J45.909 Unspecified asthma, uncomplicated; N40.1 Benign prostatic hyperplasia with lower urinary tract symptoms; N39.43 Post-void dribbling; I11.0 Hypertensive heart disease with heart failure; I50.9 Heart failure, unspecified; E11.9 Type 2 diabetes mellitus without complications; K21.9 Gastro-esophageal reflux disease without esophagitis; E78.5 Hyperlipidemia, unspecified; E03.9 Hypothyroidism, unspecified; F20.9 Schizophrenia, unspecified; G47.30 Sleep apnea, unspecified; Z87.442 Personal history of urinary calculi; Z79.82 Long term (current) use of aspirin; Z79.84 Long term (current) use of oral hypoglycemic drugs; Z79.899 Other long term (current) drug therapy
CPT/HCPCS: 36600; 71045; 80053; 81001; 82803; 82962; 85025; 93005; 99285; A4216